=== PATIENT | female | born 1960 | race Caucasian/White ===

== ENCOUNTER 2017-07-05 13:27 | Inpatient (IN) | payer MEDICAID ==
--- NOTE | 2017-07-05 13:44 | C.PDOC ---
History Of Present Illness 56 y/o female with PMHx of HTN brought to ED by EMS with complaints of right sided numbness and weakness with associated mild headache while driving earlier today. Patient denies prior history of similar symptoms and denies chest pain, sob, nausea, vomiting or any other complaints at this time. Time Seen by Provider: 07/05/17 13:34 Chief Complaint (Nursing): Weakness/Neurological Deficit History Per: Patient, EMS History/Exam Limitations: no limitations Onset/Duration Of Symptoms: Hrs Current Symptoms Are (Timing): Still Present Past Medical History Reviewed: Historical Data, Nursing Documentation, Vital Signs Vital Signs: Last Vital Signs Temp 97.7 F 07/05/17 19:40 Pulse 80 07/05/17 19:40 Resp 20 07/05/17 19:40 BP 133/86 07/05/17 19:40 Pulse Ox 99 07/05/17 21:55 - Medical History PMH: HTN Surgical History: No Surg Hx Family History: States: No Known Family Hx - Social History Hx Alcohol Use: No Hx Substance Use: No - Immunization History Hx Tetanus Toxoid Vaccination: No Hx Influenza Vaccination: No Hx Pneumococcal Vaccination: No Review Of Systems Cardiovascular: Negative for: Chest Pain Respiratory: Negative for: Shortness of Breath Gastrointestinal: Negative for: Nausea, Vomiting Skin: Negative for: Rash Neurological: Positive for: Weakness, Numbness Physical Exam - Physical Exam Appears: Non-toxic, No Acute Distress Skin: Normal Color, Warm, Dry, No Rash Head: Atraumatic, Normacephalic Eye(s): bilateral: Normal Inspection, PERRL, EOMI Oral Mucosa: Moist Neck: Supple Cardiovascular: Rhythm Regular Respiratory: Normal Breath Sounds, No Rales, No Rhonchi, No Wheezing Gastrointestinal/Abdominal: Soft, No Tenderness, No Guarding, No Rebound Extremity: Normal ROM (4+/5 strength on right and 5/5 on left side ), Capillary Refill (<2 seconds), No Swelling Neurological/Psych: Oriented x3, Normal Speech, Normal Motor (4/5), No Normal Sensation (Decreased sensation to right face, right arm and right leg), Normal Reflexes (2+ at biceps and patella) ED Course And Treatment - Laboratory Results Result Diagrams: 07/05/17 13:56 07/05/17 13:56 ECG: Interpreted By Me, Viewed By Me ECG Rhythm: Sinus Rhythm Interpretation Of ECG: Poor R wave progression. Normal intervals, Normal access non specific ST wave changes Rate From EC (BPM) O2 Sat by Pulse Oximetry: 99 (RA) Pulse Ox Interpretation: Normal Critical Care Time - Critical Care Note Total Time (in mins): 60 Documented critical care: time excludes all time spent performing seperately billable procedures. NIHSS Stroke Scale - How Severe is the Stoke Level of Consciousness: 0=Alert LOC to Questions: 0=Both comments correct LOC to commands: 0=Obeys both correctly Best Gaze: 0=Normal Visual: 0=No visual loss Facial: 0=Normal Motor Arm - Left: 0=No drift Motor Arm - Right: 2=Falls before 10 sec Motor Leg - Left: 0=No drift Motor Leg - Right: 2=Falls before 5 sec Limb Ataxia: 0=Absent Sensory: 1=Mild to moderate loss Best Language: 0=No aphasia Dysarthia: 0=Normal articulation Extinction & Inattention (Neglect): 0=Normal, no object Score: 5 Severity Of Stroke: 5-15= Moderate Stroke Medical Decision Making Medical Decision Making: Spoke to Dr. Youssef instructed CT scan w/o contrast and CTA all normal Right sided weakness improved NIH scale now 1 Discussed with Neurologist No TPA at this time Discussed with family and patient agreed no TPA at this time [id number]: At this time patient only has decreased sensation to right side but able to hold both arms and low extremities against gravity Patient given Clavix and Aspirin, Fluids Diagnosis: CVA Disposition Discussed With : Allie Yanes Doctor Will See Patient In The: Hospital Counseled Patient/Family Regarding: Studies Performed, Diagnosis - Disposition Disposition: HOSPITALIZED Disposition Time: 15:00 Condition: FAIR - Clinical Impression Clinical Impression: CVA (cerebral vascular accident) - Scribe Statement The provider has reviewed the documentation as recorded by the Juanibpaolo Preciado All medical record entries made by the Scribe were at my direction and personally dictated by me. I have reviewed the chart and agree that the record accurately reflects my personal performance of the history, physical exam, medical decision making, and the department course for this patient. I have also personally directed, reviewed, and agree with the discharge instructions and disposition.
[2017-07-05] MEDS ORDERED: Iodixanol 320 mg/ml 150 ml Bottle IV ONE (13:56)
[2017-07-05 14:02] LABS: BASO # 0.1 K/uL (0.0-0.2); BASO % 0.7 % (0.0-2.0); EOS # 0.2 K/uL (0.0-0.7); EOS % 1.8 % (0.0-4.0); HEMATOCRIT 41.6 % (34.0-47.0); LYMPH # 3.5 K/uL (1.0-4.3); LYMPH % 40.4 % (20.0-40.0); MEAN CELL VOLUME 82.3 fL (81.0-99.0); MEAN CORPUSCULAR HEMOGLOBIN 27.9 pg (27.0-31.0); MEAN CORPUSCULAR HGB CONC 33.9 g/dL (33.0-37.0); MEAN PLATELET VOLUME 7.8 fL (7.2-11.7); MONO # 0.7 K/uL (0.0-0.8); MONO % 7.6 % (0.0-10.0); NRBC % 0.1 % (0.0-2.0); RED CELL DISTRIBUTION WIDTH 12.8 % (11.5-14.5); WHITE BLOOD COUNT 8.8 K/uL (4.8-10.8)
--- NOTE | 2017-07-05 14:08 | CT ---
PROCEDURE: CT HEAD WITHOUT CONTRAST. HISTORY: code stroke COMPARISON: None available. TECHNIQUE: Axial computed tomography images were obtained through the head/brain without intravenous contrast. Radiation dose: Total exam DLP = 1218.42 mGy-cm. This CT exam was performed using one or more of the following dose reduction techniques: Automated exposure control, adjustment of the mA and/or kV according to patient size, and/or use of iterative reconstruction technique. FINDINGS: HEMORRHAGE: No intracranial hemorrhage. BRAIN: Aguirre-white matter differentiation is preserved. There is no mass, mass effect or abnormal extra-axial fluid collection. There is no territorial infarction. VENTRICLES: The ventricles are normal in size, shape and configuration. CALVARIUM: The skull base and calvarium are normal. PARANASAL SINUSES: There is a large retention cyst/ polyp in the right maxillary sinus. There is scattered mucosal thickening in the ethmoid air cells and mild mucosal thickening in the right sphenoid chamber. The remaining included paranasal sinuses are clear. MASTOID AIR CELLS: Predominantly clear. OTHER FINDINGS: None. IMPRESSION: No acute intracranial abnormality. If there is a persistent focal neurologic deficit and an ongoing clinical concern for acute infarction, an MRI of the brain without intravenous contrast would be a more sensitive modality for evaluation of hyperacute/acute ischemic infarction. Important findings were discussed with Chris Carranza in the ER on 07/05/2017 at 20:05 p.m.
[2017-07-05 14:11] LABS: INR 1.1
[2017-07-05 14:14] LABS: ALKALINE PHOSPHATASE 66 U/L (38-126); ALT/SGPT 47 U/L (9-52); AST/SGOT 31 U/L (14-36); BILIRUBIN,TOTAL 0.5 mg/dL (0.2-1.3); BLOOD UREA NITROGEN 12 mg/dL (7-17); CALCIUM 8.6 mg/dl (8.6-10.4); CARBON DIOXIDE 29 mmol/L (22-30); CHLORIDE 101 mmol/L (98-107); CHOLESTEROL 207 mg/dL (0-199); GFR AFRICAN-AMERICAN > 60; GLUCOSE,RANDOM 95 mg/dL (65-105); POTASSIUM 3.9 mmol/L (3.6-5.2); SODIUM 138 mmol/L (132-148); TOTAL PROTEIN 8.6 g/dL (6.3-8.3)
--- NOTE | 2017-07-05 14:23 | CT ---
PROCEDURE: CTA HEAD AND NECK WITH CONTRAST HISTORY: Right side numbness and weakness COMPARISON: None available. TECHNIQUE: Initial noncontrast head CT was performed. Subsequently, CT angiogram of the head and neck were performed after the intravenous administration of 80 mL of Omnipaque 350. Contiguous 1.5mm thick images were obtained in the axial plane of the neck. 2-D coronal and sagittal MPR images were obtained. Imaging postprocessing was performed with 3-D images also obtained. A delayed contrast head CT was also obtained. This CT exam was performed using one or more of the following dose reduction techniques: Automated exposure control, adjustment of the mA and/or kV according to patient size, and/or use of iterative reconstruction technique. Contrast dose: 100 mL Visipaque 320 Radiation dose: Total exam DLP = 647.82 mGy-cm. FINDINGS: HEAD: Right: The intracranial internal carotid artery, and anterior and middle cerebral arteries are widely patent. The right A1 segment is hypoplastic, an anatomic variant. Left: The intracranial internal carotid artery, and anterior and middle cerebral arteries are widely patent. Posterior circulation: The visualized intracranial vertebral arteries, basilar artery and posterior cerebral arteries are widely patent. There is no endoluminal filling defect to suggest thrombus. There is no intracranial saccular aneurysm. There is no abnormal enhancement on the postcontrast CT. NECK: There is a two vessel aortic arch with common origin of the innominate and left common carotid arteries. There is retropharyngeal course of bilateral internal carotid arteries. There is no stenosis at the origins of the great vessels at the level of the aortic arch. Right Carotid: On the right, the common carotid, internal carotid and external carotid arteries are widely patent. There is no hemodynamically significant stenosis in the internal carotid arteries. Left Carotid: On the left, the common carotid, internal carotid and external carotid arteries are widely patent.There is no hemodynamically significant stenosis in the internal carotid arteries. The vertebral arteries are widely patent. The vertebral arteries are codominant. The visualized soft tissues of the neck are normal. The visualized brain and cervical spine are within normal limits. There is a retention cyst/polyp in the right maxillary sinus. The lung apices are clear. IMPRESSION: No evidence of intracranial thrombus, occlusion or definite significant stenosis. No evidence of hemodynamically significant stenosis in the internal carotid arteries. Widely patent codominant vertebral arteries.
[2017-07-05] MEDS ORDERED: Sodium Chloride 0.9% 1,000 ML IV ONE (14:31)
[2017-07-05] MEDS ORDERED: Sodium Chloride 0.9% 1,000 ML ONE (14:39)
[2017-07-05 14:48] VITALS: BMI 37.3
--- NOTE | 2017-07-05 15:11 | RAD ---
HISTORY: code stroke COMPARISON: No prior. FINDINGS: LUNGS: No active pulmonary disease. PLEURA: No significant pleural effusion identified, no pneumothorax apparent. CARDIOVASCULAR: Based on the right sided labeling of this exam the heart projects over the right gaston thorax. No prior studies are available to corroborate this. Heart size is borderline prominent. No pulmonary venous congestion OSSEOUS STRUCTURES: No significant abnormalities. VISUALIZED UPPER ABDOMEN: Normal. OTHER FINDINGS: None. IMPRESSION: No pulmonary venous congestion. Borderline cardiomegaly Dextro cardia versus inadvertent left right label switching. If patient has outside studies ease to be helpful in ensuring stability. Repeat exam if necessary another option
--- NOTE | 2017-07-05 16:29 | CP.PCM.CON ---
History of Present Illness - History of Present Illness History of Present Illness: Mrs. Bonilla is a 56-year-old woman with a past medical history of hypertension, who states she was driving and developed a sudden right frontal headache, followed by dizziness and as a result she pulled over to the side of the road. At that point, she lost consciousness and appeared to be "blue" according to her [id number]. She then woke up and was slightly confused/tired. She had right side weakness and loss of sensation on the right side. She was brought to the ED and was found to have no facial droop or dysarthria, but had right side weakness and subjective sensory deficits with an NIHSS of 5. She was sent to the CT scanner and also had a CTA of the head/neck. When she returned, her right side weakness was completely improved and she had some residual right facial sensory loss with right arm sensory loss. Her NIHSS had dropped down to a 1. She was not a good candidate for IV tPA due to rapid improvement. The CT scan of the head did not show any acute findings, and the CTA did not show any large vessel occlusion. She was loaded with Plavix 300 mg and Aspirin 81 mg. She continued to complain of a mild headache. Review of Systems - Review of Systems All systems: reviewed and no additional remarkable complaints except Review of Systems: the neurological issues mentioned in the HPI. Past Patient History - Past Social History Smoking Status: Never Smoked - CARDIAC Hx Hypertension: Yes - PSYCHIATRIC Hx Substance Use: No - SURGICAL HISTORY Hx Surgeries: No Meds Allergies/Adverse Reactions: Allergies Allergy/AdvReac Type Severity Reaction Status Date / Time No Known Allergies Allergy Unverified 12/08/12 10:00 Physical Exam - Constitutional Appears: Well - Head Exam Head Exam: ATRAUMATIC, NORMAL INSPECTION, NORMOCEPHALIC - Eye Exam Eye Exam: EOMI, Normal appearance, PERRL - ENT Exam ENT Exam: Mucous Membranes Moist, Normal Exam - Neck Exam Neck exam: Positive for: Normal Inspection - Respiratory Exam Respiratory Exam: Clear to Auscultation Bilateral, NORMAL BREATHING PATTERN - Cardiovascular Exam Cardiovascular Exam: +S1, +S2 - GI/Abdominal Exam GI & Abdominal Exam: Normal Bowel Sounds, Soft. absent: Tenderness - Rectal Exam Rectal Exam: Deferred - Extremities Exam Extremities exam: Positive for: normal inspection - Back Exam Back exam: NORMAL INSPECTION - Neurological Exam Neurological exam: Alert, CN II-XII Intact, Normal Gait, Oriented x3, Reflexes Normal Additional comments: NIHSS = 1 - Expanded Neurological Exam Expanded Patient oriented to: person, place, time Cranial nerves: EOM's Intact: Normal, Facial Sensation: Abnormal Right Ataxia: No Cerebellar Function: Finger to Nose: Normal, Heel to Palumbo: Normal Upper motor neuron: Babinski Sign: Normal Sensory exam: Lower Extremity Light Touch: Abnormal Right, Lower Extremity Pin Prick: Normal, Upper Extremity Light Touch: Abnormal Right, Upper Extremity Pin Prick: Normal Neuro motor strength exam: Left Upper Extremity: 5, Right Upper Extremity: 5, Left Lower Extremity: 5, Right Lower Extremity: 5 DTR: Bicep Left: 2+, Bicep Right: 2+, Patellar Left: 2+, Patellar Right: 2+ - Psychiatric Exam Psychiatric exam: Normal Affect, Normal Mood - Skin Skin Exam: Dry, Intact, Normal Color, Warm Results - Vital Signs Recent Vital Signs: Last Vital Signs Temp 98.7 F 07/05/17 13:32 Pulse 83 07/05/17 15:01 Resp 18 07/05/17 15:01 BP 134/85 07/05/17 15:01 Pulse Ox 99 07/05/17 15:07 - Labs Result Diagrams: 07/05/17 13:56 07/05/17 13:56 Labs: Laboratory Results - last 24 hr 07/05/17 07/05/17 07/05/17 13:33 13:56 13:56 WBC 8.8 RBC 5.05 Hgb 14.1 Hct 41.6 MCV 82.3 MCH 27.9 MCHC 33.9 RDW 12.8 Plt Count 364 MPV 7.8 Neut % (Auto) 49.5 L Lymph % (Auto) 40.4 H [place] % (Auto) 7.6 Eos % (Auto) 1.8 Baso % (Auto) 0.7 Neut # 4.3 Lymph # 3.5 [place] # 0.7 Eos # 0.2 Baso # 0.1 PT 12.0 INR 1.1 APTT 31 Sodium Potassium Chloride Carbon Dioxide Anion Gap BUN Creatinine Est GFR ( Amer) Est GFR (Non-Af Amer) POC Glucose (mg/dL) 93 Random Glucose Hemoglobin A1c Calcium Total Bilirubin AST ALT Alkaline Phosphatase Total Creatine Kinase CK-MB (Mass) Troponin I Total Protein Albumin Globulin Albumin/Globulin Ratio Triglycerides Cholesterol LDL Cholesterol Direct HDL Cholesterol Blood Type Antibody Screen 07/05/17 07/05/17 07/05/17 13:56 13:56 13:56 WBC RBC Hgb Hct MCV MCH MCHC RDW Plt Count MPV Neut % (Auto) Lymph % (Auto) [place] % (Auto) Eos % (Auto) Baso % (Auto) Neut # Lymph # [place] # Eos # Baso # PT INR APTT Sodium 138 Potassium 3.9 Chloride 101 Carbon Dioxide 29 Anion Gap 12 BUN 12 Creatinine 0.7 Est GFR ( Amer) > 60 Est GFR (Non-Af Amer) > 60 POC Glucose (mg/dL) Random Glucose 95 Hemoglobin A1c 5.9 Calcium 8.6 Total Bilirubin 0.5 AST 31 ALT 47 Alkaline Phosphatase 66 Total Creatine Kinase 225 H CK-MB (Mass) 0.95 Troponin I < 0.0120 Total Protein 8.6 H Albumin 4.2 Globulin 4.4 H Albumin/Globulin Ratio 1.0 Triglycerides 187 H Cholesterol 207 H LDL Cholesterol Direct 136 H HDL Cholesterol 45 Blood Type A NEGATIVE Antibody Screen Negative Assessment & Plan (1) Acute ischemic stroke Assessment and Plan: Based on the history of headache, loss of consciousness and subsequent right side weakness, the differential should also include complicated migraine and seizure with Jose's paralysis. I recommend the followin. Telemetry 2. MRI of the brain without contrast and MRA of the head/neck with and without contrast 3. Echocardiogram with bubble study 4. Plavix 75 mg daily and Aspirin 81 mg daily 5. Lipid panel, HbA1c, B12, folate, TSH, homocysteine levels 6. Give Magnesium Sulfate 2 grams IV once for headache as well as Decadron 10 mg IV once 7. PT/OT eval and treat 8. Lipitor 40 mg 9. DVT Px 10. Case management consult Thank you. Status: Acute Priority: High
[2017-07-05] MEDS ORDERED: Pneumococcal 23-Valent Vaccine IM ONE (23:14)
[2017-07-06] MEDS: Enoxaparin 40 mg Syringe SC SCH (09:26)
[2017-07-06] MEDS ORDERED: Ergocalciferol 50,000 Intl Units Cap PO SCH (12:00)
--- NOTE | 2017-07-06 12:07 | MRI ---
PROCEDURE: MRI BRAIN WITHOUT CONTRAST HISTORY: CVA COMPARISON: None. TECHNIQUE: Multiplanar, multisequence MR images of the brain were obtained without intravenous contrast enhancement. FINDINGS: HEMORRHAGE: None DWI: No evidence of an acute or early subacute infarction. BRAIN PARENCHYMA: Occasional subcortical and centrum semiovale sub cm long TR hyperintensities are identified in a pattern that most likely reflects chronic microangiopathy. There is no mass effect or intracranial hemorrhage appreciable. Good corticomedullary differentiation is appreciated above and below the tentorium with the brainstem grossly nonfocal. There is no suspicious extra-axial fluid collection identified. However, the cerebellar tonsils extend below the foramen magnum approximate 4.3 mm which is compatible low-lying cerebellar tonsils. No kinking of the cervicomedullary junction or the upper medulla. VENTRICLES: Unremarkable. No hydrocephalus. CRANIUM: Unremarkable. ORBITS: Grossly unremarkable. PARANASAL SINUSES/MASTOIDS: Mild sinusitis changes are identified in the bilateral ethmoid air cells and minimally in the bilateral sphenoid sinuses as well as prominent at the right maxillary sinus. VASCULAR SYSTEM: Skull base flow voids intact. OTHER FINDINGS: None. IMPRESSION: Low-lying cerebellar tonsils are identified. 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 No acute separate brain infarction or definite intracranial hemorrhage identified this time. Incidental limited sinus disease as discussed above.
--- NOTE | 2017-07-06 13:27 | CP.PCM.PN ---
Subjective - Date & Time of Evaluation Date of Evaluation: 07/06/17 Time of Evaluation: 13:24 - Subjective Subjective: Ms. Bonilla was seen and examined at the beside. She is alert, oriented in all spheres. She states of decrease sensation and weakness of her right side especially her face. She denies any blurry vision, headache, nausea, vomiting, or numbness. She is sitting in a chair and able to tolerate PO intake.There was no untoward events overnight. Objective - Vital Signs/Intake and Output Vital Signs (last 24 hours): Temp Pulse Resp BP Pulse Ox 98.4 F 80 20 132/85 98 07/06/17 12:22 07/06/17 08:25 07/06/17 08:25 07/06/17 08:25 07/06/17 08:25 Intake and Output: 07/06/17 07/06/17 06:59 18:59 Output Total 200 Balance -200 - Medications Medications: Current Medications Acetaminophen (Tylenol 325mg Tab) 650 mg PO Q8 PRN PRN Reason: Headache Last Admin: 07/06/17 12:22 Dose: 650 mg Aspirin (Aspirin Chewable) 81 mg PO DAILY [facility] Last Admin: 07/06/17 09:26 Dose: 81 mg Clopidogrel Bisulfate (Plavix) 75 mg PO DAILY [facility] Last Admin: 07/06/17 09:26 Dose: 75 mg Enoxaparin Sodium (Lovenox) 40 mg SC DAILY [facility] Last Admin: 07/06/17 09:26 Dose: 40 mg Ergocalciferol (Drisdol 50,000 Intl Units Cap) 1 cap PO Q7D [facility] Last Admin: 07/06/17 12:21 Dose: 1 cap Losartan Potassium (Cozaar) 100 mg PO DAILY [facility] Last Admin: 07/06/17 09:27 Dose: 100 mg Pneumococcal Polyvalent Vaccine (Pneumovax 23 Vaccine) 0.5 ml IM .ONCE ONE Stop: 07/08/17 10:01 Rosuvastatin Calcium (Crestor) 20 mg PO HS [facility] - Labs Labs: 07/05/17 13:56 07/05/17 13:56 PT 12.0 SECONDS (9.7-12.2) 07/05/17 13:56 INR 1.1 07/05/17 13:56 APTT 31 SECONDS (21-34) 07/05/17 13:56 - Constitutional Appears: No Acute Distress - Head Exam Head Exam: ATRAUMATIC - Neurological Exam Neurological Exam: Alert, Awake, Oriented x3 Neuro motor strength exam: Left Upper Extremity: 5, Right Upper Extremity: 4, Left Lower Extremity: 5, Right Lower Extremity: 4 Additional comments: She is able to answer questions appropriately and follows commands. Sensation is asymmetrical. Assessment and Plan (1) Acute ischemic stroke Assessment & Plan: Case discussed with Dr. Youssef, Recommends MRA of the head and neck without contrast. Continue all current medical physical, occupational, and speech therapies. Pending echocardiogram result. Status: Acute
--- NOTE | 2017-07-06 13:38 | HP ---
CHIEF COMPLAINT: Weakness and neurological deficit. HISTORY OF PRESENT ILLNESS: Ms. Irene Yu is a 56-year-old female with past medical history of hypertension, brought to emergency department by EMS with complaining of right-sided numbness and weakness with headache while driving earlier today. The patient denies prior history of similar symptoms and denies any chest pain, shortness of breath, nausea, vomiting, or any other complaints at this time. The patient was seen in the emergency room. The patient's son and [id number] were standing on the bedside also, all questions answered, seen by the neurologist. PAST MEDICAL HISTORY: Hypertension and obesity. PAST SURGICAL HISTORY: Not significant. FAMILY HISTORY: Father and mother, noncontributory. HABITS: No smoking. No drugs. No ethanol. REVIEW OF SYSTEMS: The patient is seen and examined on the bedside, looking comfortable. No nausea, vomiting, or diarrhea. No hematuria or hematochezia. The patient was seen in the emergency room. Weakness is a little better. No headache. No dizziness. PHYSICAL EXAMINATION: VITAL SIGNS: Temperature 98.7, pulse 83, respiratory rate 18, blood pressure 135/84. HEENT: Head, normocephalic and atraumatic. Eyes, PERRLA. Extraocular muscles are intact. Conjunctivae are clear. Nose is patent. Mucous membranes are moist. NECK: Supple. No carotid bruits. No JVD or thyromegaly. CHEST: Bilaterally symmetrical. HEART: S1 and S2 positive. LUNGS: Clear to auscultation. ABDOMEN: Soft. Bowel sounds positive. No organomegaly. EXTREMITIES: No edema, no cyanosis. NEUROLOGIC: The patient is awake, alert, and oriented x3. Normal speech. LABORATORY DATA: White blood cell is 8.8, hemoglobin 14.1, hematocrit 41.6, platelets 364,000. Sodium 138, potassium 3.9, BUN 12, creatinine 0.7, and glucose 95. ASSESSMENT AND PLAN: Ms. Irene Yu is a 56-year-old lady with history of hypertension, came into [facility] with neurological deficit. CAT scan of the head was done without contrast. ER spoke with Neurology, Dr. Youssef. The patient's right-sided weakness improved, NIH scale was 1. He had decided not tPA at this time. We discussed with the family and the patient, they agreed no tPA at this time. The patient is not able to hold both arms and lower extremities against gravity. The patient was given Plavix and aspirin, admitted for cerebrovascular accident. I will order bilateral carotid Doppler of the neck, losartan for hypertension and will give some physical therapy and we will follow up. Allie Yanes MD
--- NOTE | 2017-07-06 14:48 | VASCLAB ---
PROCEDURE: HISTORY: TIA COMPARISON: None available. TECHNIQUE: Grayscale and duplex Doppler evaluation of the cervical carotid and vertebral arteries were performed. The common carotid, carotid bifurcations and cervical Internal Carotid Artery (ICA) and proximal External Carotid Artery (ECA) were evaluated. The vertebral arteries were evaluated for gross patency and flow direction. Report prepared by MANA Oates FINDINGS: RIGHT CAROTID ARTERIES: 1. Common Carotid Artery: No significant focal plaque formation of the right common carotid artery. Maximum Peak Systolic velocity: 121 cm/sec: End-diastolic velocity 35 cm/sec. 2. Carotid Bifurcation: plaque formation. Maximum Peak Systolic velocity: 66 cm/sec: End-diastolic velocity 19 cm/sec. 3. Internal Carotid Artery: Plaque description: 3.1. Proximal Segment: Peak systolic velocity 77 cm/sec: End-diastolic velocity 27 cm/sec - % stenosis 0-15% 3.2. Middle Segment: Peak systolic velocity 73 cm/sec: End-diastolic velocity 29 cm/sec - % stenosis 0-15% 3.3. Distal Segment: Peak systolic velocity 73 cm/sec: End-diastolic velocity 27 cm/sec - % stenosis 0-15% 4. External Carotid Artery: No significant focal plaque formation. Peak systolic velocity 95 cm/sec 5. ICA/CCA Ratio: 0.9 LEFT CAROTID ARTERIES: 1. Common Carotid Artery: No significant focal plaque formation of the left common carotid artery. Maximum Peak Systolic velocity: 83 cm/sec: End-diastolic velocity 23 cm/sec. 2. Carotid Bifurcation: plaque formation. Maximum Peak Systolic velocity: 65 cm/sec: End-diastolic velocity 21 cm/sec. 3. Internal Carotid Artery: Plaque description: 3.1. Proximal Segment: Peak systolic velocity 62 cm/sec: End-diastolic velocity 23 cm/sec - % stenosis 0-15% 3.2. Middle Segment: Peak systolic velocity 91 cm/sec: End-diastolic velocity 41 cm/sec - % stenosis 0-15% 3.3. Distal Segment: Peak systolic velocity 66 cm/sec: End-diastolic velocity 22 cm/sec - % stenosis 0-15% 4. External Carotid Artery: No significant focal plaque formation. Peak systolic velocity 143 cm/sec 5. ICA/CCA Ratio: 1.3 VERTEBRAL ARTERIES: 1. Right Vertebral Artery: The right vertebral artery flow direction is antegrade. 2. Left Vertebral Artery: The left vertebral artery flow direction is antegrade. OTHER FINDINGS: 1. Right Brachial Blood pressure: 140 mmHg. 2. Left Brachial Blood pressure: 140 mmHg. IMPRESSION: RIGHT: Duplex scan does not suggest hemodynamically significant stenosis of the right extracranial carotid arteries. LEFT: Duplex scan does not suggest hemodynamically significant stenosis of the left extracranial carotid arteries.
--- NOTE | 2017-07-06 15:03 | MRI ---
PROCEDURE: MR Angiography of the neck without contrast HISTORY: CVA COMPARISON: None available. TECHNIQUE: 3D Dogy-dl-vloidr angiography of the neck was performed. Rotating maximum intensity projection images of the cervical carotid and vertebral arteries were generated. The origins of the common carotid arteries were not visualized, which is a limitation inherent to the non-contrast time of flight technique. FINDINGS: RIGHT CAROTID ARTERIES: Common Carotid Artery: Normal. Carotid Bifurcation: Normal. Internal Carotid Artery:No definite significant stenosis appreciated External Carotid Artery (proximal branches): Normal. LEFT CAROTID ARTERIES: Common Carotid Artery: Normal. Carotid Bifurcation: Normal. Internal Carotid Artery:No definite significant stenosis appreciated External Carotid Artery (proximal branches): Normal. VERTEBRAL ARTERIES: Right Vertebral Artery: No definite significant stenosis appreciated Left Vertebral Artery: No definite significant stenosis appreciated OTHER FINDINGS: None. IMPRESSION: No definite significant stenosis appreciated the visualized bilateral common and internal carotid arteries as discussed above. Bilateral vertebral arteries appear widely patent as well. Motion artifacts limit this examination somewhat.
--- NOTE | 2017-07-06 15:05 | MRI ---
PROCEDURE: Magnetic Resonance Angiography Brain HISTORY: CVA COMPARISON: None available. TECHNIQUE: 3D time of flight MR angiography of the intracranial arteries was performed. Rotating maximum intensity projection images were generated. FINDINGS: INTERNAL CAROTID ARTERIES: Unremarkable. The skull base, petrous, cavernous and supraclinoid segments are bilaterally widely patient. ANTERIOR CEREBRAL ARTERIES: Unremarkable. A1 and A2 segments are widely patent. Smaller distal branches unremarkable, as visualized. MIDDLE CEREBRAL ARTERIES: Unremarkable. M1 and M2 segments are widely patent. Perisylvian branches grossly symmetric. POSTERIOR CIRCULATION: Basilar Artery: Unremarkable. Distal Vertebral Arteries: Unremarkable. Posterior Cerebral Arteries: Unremarkable. Posterior Inferior Cerebellar Arteries: Unremarkable. ANEURYSM/ VASCULAR MALFORMATIONS: None. OTHER FINDINGS: None. IMPRESSION: Unremarkable MR angiography of the brain.
--- NOTE | 2017-07-07 06:23 | PN ---
DATE: SUBJECTIVE: The patient is seen and examined at the bedside, looking comfortable. Family, two [id number], and a son in on the bedside. No blurring of vision. No nausea, vomiting, or diarrhea. Tolerating food. Went for different tests, reviewed by me, seen by the neurologist. PHYSICAL EXAMINATION: VITAL SIGNS: Temperature 98.4, pule 80, respiratory rate 20, blood pressure 132/85, pulse oximetry of 98. HEENT: Head normocephalic, atraumatic. Eyes PERRLA. Extraocular muscles intact. Conjunctivae clear. Nose patent. Mucous membrane moist. NECK: Supple. No carotid bruit, JVD, or thyromegaly. CHEST: Bilaterally symmetrical. HEART: S1 and S2 positive. LUNGS: Clear to auscultation. ABDOMEN: Soft. Bowel sounds positive. No organomegaly. EXTREMITIES: No edema. No cyanosis. NEUROLOGICAL: The patient is awake, alert. Moving all 4 extremities. No focal deficit. MEDICATIONS: Tylenol, aspirin, Plavix, Lovenox, vitamin D, Cozaar, Pneumovax, Crestor. LABORATORY DATA: White blood cells 8.8, hemoglobin 14.1, hematocrit 41.6, platelets 364. Sodium 130, potassium 3.9, BUN 12, creatinine 0.7, glucose 95. ASSESSMENT AND PLAN: Ms. Irene Yu is a 56-year-old lady with history of asthma, came with acute ischemic stroke, seen by Dr. Youssef, neurologist, recommended MRA of the head and neck without contrast. Continue current medical treatment and physical therapy, occupational therapy, and speech therapy. Need echocardiography. Reviewed neck MRA. No definite significant stenosis appreciated in bilateral common and internal carotids, bilateral vertebral arteries appear widely patent, motion artifact limited this examination somewhat. Reviewed head MRA. Unremarkable MR angiography of the brain. Did brain MRI, low-lying cerebellar tonsils are identified as well as early chronic microangiopathy is identified. No acute separate brain infarctions or definite intracranial hemorrhage identified at this time. Bilateral carotid Doppler of the neck is reviewed. Right carotid artery, common carotid artery, no significant focal plaque formation of the right common carotid artery, maximum peak systolic velocity 121, end-diastolic velocity 35, carotid bifurcation plaque formation, maximum speed/velocity 66. Internal carotid artery plaque description, one proximal segment peak systolic velocity 77. History of hypertension, obesity, right side weakness improving, TPA was not given in the ER because as per Neurology, the patient was not a candidate. Needs good physical therapy. We will follow up. Allie Yanes MD MTDAbby
[2017-07-07] MEDS: Enoxaparin 40 mg Syringe SC SCH (09:46)
[2017-07-07] MEDS ORDERED: Bisacodyl 5mg EC Tab PO ONE (18:58)
[2017-07-08 02:09] VITALS: RESP 20
--- NOTE | 2017-07-08 03:09 | PN ---
DATE: SUBJECTIVE: Patient is a 56-year-old female. Patient is seen and examined at the bedside, looking comfortable. No change happened overnight. Weakness is getting better. Went for echocardiography, results are pending. Seen by the neurologist. PHYSICAL EXAMINATION: VITAL SIGNS: Temperature 97.9, pulse 95, respiratory rate 18, blood pressure 112/75. HEENT: Head, normocephalic and atraumatic. Eyes, PERRLA. Extraocular muscles are intact. Conjunctivae are clear. Nose is patent. Mucous membranes are moist. NECK: Supple. No carotid bruits. No JVD or thyromegaly. CHEST: Bilaterally symmetrical. HEART: S1 and S2 positive. LUNGS: Clear to auscultation. ABDOMEN: Soft. Bowel sounds present. No organomegaly. EXTREMITIES: No edema. No cyanosis. NEUROLOGICAL: Patient is awake, alert. Moving all four extremities. No focal deficits. MEDICATIONS: Aspirin, Cozaar, Crestor, vitamin D, Lovenox, Plavix, Tylenol. LABORATORY DATA: We do not have recent labs today, but I reviewed old labs. ASSESSMENT AND PLAN: Mrs. Irene Yu is a 56-year-old lady with hypercholesterolemia, hypertriglyceridemia. Went for echocardiography today, results are pending. Neurologist, Dr. Nolberto Youssef, is on the case. History of asthma, has acute ischemic stroke. Patient will have good benefit from physical therapy. We will continue present treatment. Gastrointestinal and deep venous thrombosis prophylaxis. Repeat labs. Allie Yanes MD
[2017-07-08 08:28] VITALS: O2SAT 97
[2017-07-08] MEDS ORDERED: Pneumococcal 23-Valent Vaccine IM ONE (10:00)
[2017-07-08] MEDS ORDERED: Influenza Vaccine 60 mcg/0.5 mL SYR (4YR UP) IM ONE (10:00)
[2017-07-08] MEDS: Enoxaparin 40 mg Syringe SC SCH (10:44)
[2017-07-08] MEDS ORDERED: Apap-Butalbital-Caffeine 325-50-40mg Tab PO PRN (11:50)
--- NOTE | 2017-07-08 12:14 | CARD ---
APPROVED REPORT EKG Measurement Heart [id number] MI 148P [id number] <Conclusion> Suspect arm lead reversal, interpretation assumes no reversal Normal sinus rhythm Inferior infarct, age undetermined Anterolateral infarct, age undetermined Abnormal ECG
--- NOTE | 2017-07-08 13:21 | CP.PCM.PN ---
Subjective - Date & Time of Evaluation Date of Evaluation: 07/08/17 Time of Evaluation: 13:18 - Subjective Subjective: Ms. Bonilla was seen and examined at the bedside. She is alert, oriented in all spheres. She states of experiencing headache in her right frontal area radiating to the right side of her face. She further describe as pressure-like. 02/07. She denies any dizziness, lightheadedness, numbness, nausea, or vomiting. She was able to tolerate all po intake. There was no untoward events overnight. Objective - Vital Signs/Intake and Output Vital Signs (last 24 hours): Temp Pulse Resp BP Pulse Ox 98.0 F 85 20 139/82 97 07/08/17 08:27 07/08/17 12:00 07/08/17 08:27 07/08/17 10:40 07/08/17 08:27 - Medications Medications: Current Medications Acetaminophen (Tylenol 325mg Tab) 650 mg PO Q8 PRN PRN Reason: Fever Aspirin (Aspirin Chewable) 81 mg PO DAILY [facility] Last Admin: 07/08/17 10:43 Dose: 81 mg Clopidogrel Bisulfate (Plavix) 75 mg PO DAILY [facility] Last Admin: 07/08/17 10:43 Dose: 75 mg Enoxaparin Sodium (Lovenox) 40 mg SC DAILY [facility] Last Admin: 07/08/17 10:44 Dose: 40 mg Ergocalciferol (Drisdol 50,000 Intl Units Cap) 1 cap PO Q7D [facility] Last Admin: 07/06/17 12:21 Dose: 1 cap Magnesium Sulfate/Dextrose (Magnesium Sulfate 1 Gm/100 Ml D5w) 1 gm in 100 mls @ 300 mls/hr IVPB Q30M [facility] Stop: 07/08/17 13:19 Valproate Sodium 500 mg/ (Sodium Chloride) 105 mls @ 105 mls/hr IVPB ONCE ONE PRN Reason: Per Protocol Stop: 07/08/17 14:29 Losartan Potassium (Cozaar) 100 mg PO DAILY [facility] Last Admin: 07/08/17 10:43 Dose: 100 mg Rosuvastatin Calcium (Crestor) 20 mg PO HS [facility] Last Admin: 07/07/17 21:23 Dose: 20 mg - Labs Labs: 07/05/17 13:56 07/05/17 13:56 PT 12.0 SECONDS (9.7-12.2) 07/05/17 13:56 INR 1.1 07/05/17 13:56 APTT 31 SECONDS (21-34) 07/05/17 13:56 - Constitutional Appears: No Acute Distress - Head Exam Head Exam: ATRAUMATIC - Neurological Exam Neurological Exam: Alert, Awake, CN II-XII Intact, Oriented x3 Neuro motor strength exam: Left Upper Extremity: 5, Right Upper Extremity: 4, Left Lower Extremity: 5, Right Lower Extremity: 4 Additional comments: Neurological unchanged from previous examination. Assessment and Plan (1) Acute ischemic stroke Assessment & Plan: Case discussed with Dr. Youssef, continue all current medical, physical, and occupational therapies. Status: Acute (2) Headache Assessment & Plan: Case discussed with Dr. Youssef, recommends repeat CT of the head without contrast. Magnesium 2 gm IVPB for 1 dose, Decadron 10 mg IVP for 1 dose, Depakote 500 mg IVPB for 1 dose. Status: Acute
[2017-07-08] MEDS ORDERED: Valproate 500 MG in Sodium Chloride 0.9% 100 ML IVPB ONE (13:30)
[2017-07-08] MEDS: Magnesium Sulfate 1 gm in D5W 1 GM/100 ML BAG IVPB SCH ×5 (13:44→15:49)
--- NOTE | 2017-07-08 14:15 | CT ---
PROCEDURE: CT HEAD WITHOUT CONTRAST. HISTORY: headache, follow up stroke COMPARISON: MRI brain without contrast from 07/06/2017. TECHNIQUE: Axial computed tomography images were obtained through the head/brain without intravenous contrast. Radiation dose: Total exam DLP = 1068.87 mGy-cm. This CT exam was performed using one or more of the following dose reduction techniques: Automated exposure control, adjustment of the mA and/or kV according to patient size, and/or use of iterative reconstruction technique. FINDINGS: HEMORRHAGE: No intracranial hemorrhage. BRAIN: Aguirre-white matter differentiation is preserved. There is no mass, mass effect or abnormal extra-axial fluid collection normal. There is inferior herniation of the cerebellar tonsils through the foramina magnum. VENTRICLES: The ventricles are normal in size, shape and configuration. There is effacement of the basilar cisterns. CALVARIUM: The skull base and calvarium are. PARANASAL SINUSES: Mild mucosal thickening in the ethmoid air cells and small retention cyst/ polyp in the right sphenoid chamber. MASTOID AIR CELLS: Predominantly clear. OTHER FINDINGS: None. IMPRESSION: No acute intracranial abnormality. Inferior herniation of cerebellar tonsils through the foramina magnum and effacement of basilar cisterns. Given patient's history of headache, benign intracranial hypertension is a consideration. Please correlate with CSF opening pressure. Important findings were discussed with Dr. Wade Youssef on a 07/08/2017 at 2:05 p.m.
--- NOTE | 2017-07-08 17:20 | CP.PCM.PN ---
Subjective - Date & Time of Evaluation Date of Evaluation: 07/08/17 Time of Evaluation: 17:20 - Subjective Subjective: PATIENT WAS ADMITTED FOR CVA; AAOX3 ABLE TO MOVE ALL EXTREMITIES NO SIGN OF WEAKNESS NOTED; PATIENT ONLY COMPLAINING OF RIGHT EYE PRESSURE NO VISION CHANGE NOTED AND PATIENT DENIES HEADACHE OR BLURRED VISION Objective - Vital Signs/Intake and Output Vital Signs (last 24 hours): Temp Pulse Resp BP Pulse Ox 98.0 F 85 20 139/82 97 07/08/17 08:27 07/08/17 12:00 07/08/17 08:27 07/08/17 10:40 07/08/17 08:27 Intake and Output: 07/08/17 07/08/17 06:59 18:59 Intake Total 700 Balance 700 - Medications Medications: Current Medications Acetaminophen (Tylenol 325mg Tab) 650 mg PO Q8 PRN PRN Reason: Fever Acetazolamide (Diamox Sequels 500 Mg Sr Cap) 500 mg PO BID [facility] Aspirin (Aspirin Chewable) 81 mg PO DAILY [facility] Last Admin: 07/08/17 10:43 Dose: 81 mg Clopidogrel Bisulfate (Plavix) 75 mg PO DAILY [facility] Last Admin: 07/08/17 10:43 Dose: 75 mg Enoxaparin Sodium (Lovenox) 40 mg SC DAILY [facility] Last Admin: 07/08/17 10:44 Dose: 40 mg Ergocalciferol (Drisdol 50,000 Intl Units Cap) 1 cap PO Q7D [facility] Last Admin: 07/06/17 12:21 Dose: 1 cap Losartan Potassium (Cozaar) 100 mg PO DAILY [facility] Last Admin: 07/08/17 10:43 Dose: 100 mg Rosuvastatin Calcium (Crestor) 20 mg PO HS [facility] Last Admin: 07/07/17 21:23 Dose: 20 mg - Labs Labs: 07/05/17 13:56 07/05/17 13:56 PT 12.0 SECONDS (9.7-12.2) 07/05/17 13:56 INR 1.1 07/05/17 13:56 APTT 31 SECONDS (21-34) 07/05/17 13:56 Assessment and Plan - Assessment and Plan (Free Text) Assessment: A/P PATIENT IS SEEN AND EXAMINED AT THE BEDSIDE; NEURO CLEAR THE PATIENT FOR DISCHARGE BUT HAD SOME CONCERN WITH HEAD CT AND ASK THE PATIENT TO F/U OUT PATIENT FOR A LUMBAR PUNCTURE IN HIS OFFICE SINCE PATIENT WANT TO GO HOME DISCUSS WITH THE PMD AND AGREE AND CLEAR THE PATIENT FOR DC\ DISCUSS WITH DR SOMMERS FOR AN ECHO REPORT EF IS NORMAL AND CLEAR PATIENT FOR DC DISCHARGE HOME WITH HOME PHYSICAL THERAPY FOLLOW UP WITH DR SAAB IN A WEEK AT HER OFFICE ----CALL HER OFFICE FOR APPOINTMENT FOLLOW UP WITH DR RANGEL IN THE WEEK OF THE AT HIS OFFICE ---CALL FOR APPOINTMENT ADDRESS YOUR lUMPAR PUNCTURE AND ALSO ASK THE DOCTOR SHOULD YOU CONTINUE DIAMOX AT YOUR APPOINTMENT CONTINUE ALL YOUR HOME MEDS PER MED RECS NEW RX GIVEN: DIAMOX AND ASPIRIN PER NEUROLOGIST CRESTOR 10 MG PO AT HS CALL DR SAAB OR JUAN CARLOS OR GO TO THE ER IF SYMPTOMS RETURN OR WORSENING DISCUSS WITH PATIENT WHO AGREE WITH THE PLAN AND VERBALIZED UNDERSTANDING
[2017-07-08] MEDS ORDERED: acetaZOLAMIDE 500 mg SR Cap PO SCH (18:00)
[2017-07-08 18:32] VITALS: BP 138/87; TEMP 97.7
[2017-07-09 00:44] VITALS: PULSE 84
--- NOTE | 2017-07-10 21:11 | CARD ---
APPROVED REPORT EXAM: LIMITED Two-dimensional and M-mode echocardiogram with Doppler and color Doppler. Other Information Quality : LimitedRhythm : INDICATION CVA/TIA 2D DIMENSIONS IVSd1.1 (0.7-1.1cm)LVDd3.8 (3.9-5.9cm) PWd1.1 (0.7-1.1cm)LVDs2.6 (2.5-4.0cm) FS (%) 30.5 %LVEF (%)58.7 (>50%) M-Mode DIMENSIONS Left Atrium (MM)3.63 (2.5-4.0cm)Aortic Root3.18 (2.2-3.7cm) Aortic Cusp Exc.2.22 (1.5-2.0cm) Mitral Valve MV E Ujhxjgzs68.7cm/sMV A Kcseixgo54.5cm/sE/A ratio1.7 TDI E/Lateral E'0.0E/Medial E'0.0 Tricuspid Valve TR Peak Jrhzdeqb212uy/sTR Peak Gr.[id number] <Conclusion> Suboptimal study DEXTROCARDIA Left ventricle: thickness: normal; size: normal; overall ejection fraction: 55%: diastolic filling pressures: elevated Mitral valve:GROSSLY NORMAL left atrium: normal Aortic valve: grossly normal Right sided Structures: suboptimally visualized Intra-cardiac hemodynamics: Indeterminate No pericardial effusion
--- NOTE | 2017-07-11 10:43 | VASCLAB ---
PROCEDURE: Lower Extremity Venous Duplex Exam. HISTORY: rule out DVT, right thigh pain PRIORS: None. TECHNIQUE: Bilateral common femoral, femoral, popliteal and posterior tibial, peroneal and great saphenous veins were evaluated. Flow was assessed with color Doppler, compressibility, assessment of phasic flow and augmentation response. Report prepared by Flash Otero, BEVERLY, RVT FINDINGS: RIGHT: 1. Common Femoral Vein: 1.1. Compressibility - Fully compressible: Thrombus - None : Flow - Phasic: Augmentation -Normal: Reflux - None. 2. Femoral Vein: 2.1. Compressibility - Fully compressible: Thrombus - None : Flow - Phasic: Augmentation -Normal: Reflux - None. 3. Popliteal Vein: 3.1. Compressibility - Fully compressible: Thrombus - None : Flow - Phasic: Augmentation -Normal: Reflux - None. 4. Posterior Tibial Vein: 4.1. Compressibility - Fully compressible: Thrombus - None: Flow - Phasic: Augmentation -Normal: Reflux - None. 5. Peroneal Vein: 5.1. Compressibility - Fully compressible: Thrombus - None: Flow - Phasic: Augmentation -Normal: Reflux - None. 6. Great Saphenous Vein: 6.1. Compressibility - Fully compressible: Thrombus - None: Flow - Phasic: Augmentation - Normal: Reflux - None. LEFT: 1. Common Femoral Vein: 1.1. Compressibility - Fully compressible: Thrombus - None: Flow - Phasic: Augmentation -Normal: Reflux - None. 2. Femoral Vein: 2.1. Compressibility - Fully compressible: Thrombus - None: Flow - Phasic: Augmentation -Normal: Reflux - None. 3. Popliteal Vein: 3.1. Compressibility - Fully compressible: Thrombus - None : Flow - Phasic: Augmentation -Normal: Reflux - None. 4. Posterior Tibial Vein: 4.1. Compressibility - Fully compressible: Thrombus - None: Flow - Phasic: Augmentation -Normal: Reflux - None. 5. Peroneal Vein: 5.1. Compressibility - Fully compressible: Thrombus - None: Flow - Phasic: Augmentation -Normal: Reflux - None. 6. Great Saphenous Vein: 6.1. Compressibility - Fully compressible: Thrombus - None: Flow - Phasic: Augmentation - Normal: Reflux - None. OTHER FINDINGS: Right: None significant. Left: None significant. IMPRESSION: Right: No evidence of deep or superficial vein thrombosis of the right lower extremity. Normal valve function noted of the right side. Left: No evidence of deep or superficial vein thrombosis of the left lower extremity. Normal valve function noted of the left side.
--- NOTE | 2017-07-13 14:23 | DS ---
CHIEF COMPLAINT: Weakness and neurological deficit. HISTORY OF PRESENT ILLNESS: Ms. Aimee Bonilla is 56 years old lady, [place] with past medical history of hypertension, came to the emergency room department by EMS complaining of right-sided weakness and headache while she was driving. The patient denies prior history of similar symptoms and denies any chest pain, shortness of breath, nausea, vomiting, or diarrhea. No hematuria or hematochezia. No fever. No chills. The patient's son and myewlhnq-[id number] were standing at the patient's bedside. They did translation for me. We admitted the patient, did CAT scan of the head, head and neck CTA, chest x-ray, electrocardiography, carotid Doppler of the neck, brain MRA, head MRA, neck MRA, Doppler study of the extremities, again repeat CAT scan of the head. Seen by Dr. Nolberto Youssef, neurologist. Patient improved, got physical therapy, discharged home after clearing from Neurology. Need physical therapy as outpatient. Discussion done with patient's son multiple times and two [id number]. Educated to follow up with neurologist, primary care physician, and physical therapy. PAST MEDICAL HISTORY: Hypertension, obesity. PAST SURGICAL HISTORY: Nonsignificant. FAMILY HISTORY: Father and mother noncontributory. HABITS: Never smoked. No drug. No ethanol. ALLERGIES: PATIENT IS NOT ALLERGIC WITH ANY MEDICATIONS. HOME MEDICATIONS: She does not remember. REVIEW OF SYSTEMS: Patient is seen and examined at the bedside. Looking comfortable. No nausea, vomiting, or diarrhea. No hematuria. No hematochezia. Oriented x3. Moving all four extremities. Sometimes complaining about headache. No blurring of vision. PHYSICAL EXAMINATION: VITAL SIGNS: Temperature 98.0, pulse 85, respirations 20, blood pressure 139/82, pulse oximetry 97. HEENT: Head normocephalic and atraumatic. Eyes PERRLA. EOMs intact. Conjunctivae clear. Nose patent. NECK: Supple. No carotid bruits. No JVD. No thyromegaly. CHEST: Bilaterally symmetrical. HEART: S1 and S2 positive. LUNGS: Clear to auscultation. ABDOMEN: Soft. Bowel sounds present. No organomegaly. EXTREMITIES: No edema. No cyanosis. NEUROLOGIC: Patient is awake and alert. Moving all 4 extremities. No focal deficit. MEDICATIONS: Diamox, aspirin, Plavix, Lovenox, vitamin B, Cozaar, Crestor. LABORATORY DATA: White blood cells 8.8, hemoglobin 14.1, hematocrit 41.6, platelets 364,000. Sodium 130, potassium 3.9, BUN 12, creatinine 0.7, glucose 94. ASSESSMENT AND PLAN: The patient has history of hypertension, hypercholesterolemia, obesity, hypertriglyceridemia. Plan is for echocardiography. Seen by Dr. Nolberto Youssef for cerebrovascular disease/transient ischemic attack,history of asthma. Physical therapy given. Patient was cleared by the neurologist with the condition that the patient has to do followup as outpatient. Gastrointestinal and deep vein thrombosis prophylaxis given. Lifestyle modification and diet discussed with the patient and the patient's family. Discharged the patient to home with the family. Allie Yanes MD
== END 2017-07-08 18:45 | disposition home or self-care (01) | DRG 891 ==
LOC: C.ER 13:27 → C.9E 15:07 → C.6T 18:40
PROVIDERS: ADMIT Internal Medicine; ATTEND Internal Medicine
DX: G93.2 Benign intracranial hypertension (principal); I10 Essential (primary) hypertension; E78.00 Pure hypercholesterolemia, unspecified; R29.705 NIHSS score 5; I73.9 Peripheral vascular disease, unspecified; J45.909 Unspecified asthma, uncomplicated; E78.1 Pure hyperglyceridemia; Z79.82 Long term (current) use of aspirin

== ENCOUNTER 2017-07-19 13:32 | Day surgery (SDC) | payer MEDICAID ==
[2017-07-19] MEDS ORDERED: Lidocaine 2% Inj (20ml) ONE (13:49)
[2017-07-19 14:50] VITALS: BMI 31.8
--- NOTE | 2017-07-19 14:54 | PCM.PROC ---
Procedures Attestation:: I certify that I have explained the specified Operation(s) or Procedure(s), risks, benefits and reasonable alternatives to the Patient and/or other person responsible. The opportunity was given to ask questions and all questions answered - Lumbar Puncture Consent Obtained: Written Consent Time Out Performed: Yes Patient Position: Right Lateral Decubitius Skin Prep: Povidone-Iodine 1% Local Anesthetic Used: Lidocaine 1% Spinal Needle Gauge: 22G Interspace Used: L3-L4 Opening Pressure (cmH2O): 28 Fluid Initially Obtained: Clear Complications: None
[2017-07-19 15:14] LABS: FLUID TYPE SPINAL FLUID
[2017-07-19 15:27] LABS: CSF APPEARANCE CLEAR/COLORLESS (CLEAR)
[2017-07-19 15:28] LABS: CSF MONO/MACROPHAGE 0 % (0-0)
[2017-07-19 15:31] LABS: CSF VOLUME 6 mL (0-1)
[2017-07-23 03:08] LABS: CSF ALPHA-2-GLOBULIN 6.4 % (4.6-10.8); CSF BETA GLOBULIN 19.5 % (7.8-18.2); CSF GAMMA GLOBULIN 18.7 % (4.8-17.6); CSF PRE-ALBUMIN 5.4 % (1.3-6.9)
== END 2017-07-19 15:50 | disposition home or self-care (01) ==
LOC: C.SPRAD 13:32
PROVIDERS: ATTEND General Practice
DX: G93.2 Benign intracranial hypertension (principal)

== ENCOUNTER 2017-07-28 22:34 | Inpatient (IN) | payer MEDICAID ==
[2017-07-28 22:36] VITALS: BMI 31.8
--- NOTE | 2017-07-28 23:32 | C.PDOC ---
History Of Present Illness Patient brought to ED by family members for evaluation of RUE weakness that began approx 30 min [employer]. As per son, patient has h/o HTN, hyperlipidemia and two recent TIAs. Has LP done at [facility] on 07/19 - had had persistent headache since then. He she was sleeping tonight and woke up because she was SOB, then was unable to speak clearly and had right sided weakness. As per son, prior episodes presented in same manner. Neurologist- Dr. Youssef Time Seen by Provider: 07/28/17 23:11 Chief Complaint (Nursing): Weakness/Neurological Deficit History Per: Family History/Exam Limitations: clinical condition Onset/Duration Of Symptoms: Mins (30 min [employer]MI[employer]) Current Symptoms Are (Timing): Still Present Past Medical History Reviewed: Historical Data, Nursing Documentation, Vital Signs Vital Signs: Last Vital Signs Temp 97.4 F L 07/29/17 01:45 Pulse 59 L 07/29/17 01:45 Resp 20 07/29/17 01:45 BP 108/72 07/29/17 01:45 Pulse Ox 97 07/29/17 01:45 - Medical History PMH: HTN, Hypercholesterolemia Surgical History: Appendectomy, Cholecystectomy Family History: States: No Known Family Hx - Social History Hx Alcohol Use: No Hx Substance Use: No - Immunization History Hx Tetanus Toxoid Vaccination: No Hx Influenza Vaccination: No Hx Pneumococcal Vaccination: No Review Of Systems Review Of Systems: ROS cannot be obtained secondary to pt's inabilty to answer questions. Physical Exam - Physical Exam Appears: Non-toxic, In Acute Distress (appears mildly uncomfortable) Skin: Normal Color, Warm, Dry Head: Atraumatic, Normacephalic Eye(s): bilateral: Normal Inspection, PERRL, EOMI Oral Mucosa: Moist Tongue: Normal Appearing, No Swelling Lips: Normal Appearing Neck: Normal, Normal ROM, Supple Cardiovascular: Rhythm Regular Respiratory: Normal Breath Sounds, No Rales, No Rhonchi, No Wheezing Gastrointestinal/Abdominal: Normal Exam, Bowel Sounds, Soft, No Tenderness Extremity: Normal ROM, No Calf Tenderness, No Deformity Neurological/Psych: Oriented x3, No Normal Speech, Normal Cognition, No Normal Cranial Nerves (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), otherwise [employer]), No Normal Motor (2/5 motor strength RUE, 5/5 motor strength all other ext ), Normal Sensation, No Normal Reflexes ED Course And Treatment - Laboratory Results Result Diagrams: 07/28/17 23:39 07/28/17 23:39 ECG: Interpreted By Me, Viewed By Me (NSR 69 bpm, normal axis, ST depressions I , II, aVL) O2 Sat by Pulse Oximetry: 98 (RA) Pulse Ox Interpretation: Normal - Radiology CXR: Interpreted by Me, Viewed By Me (situs inversus, 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 SSN: [id number] : 1960. Study: CT HEAD WO Requesting Physician: CHANG CASON. Images: 114. Addl Studies : Provided Clinical History: Code Stroke. CONFIDENTIALITY STATEMENT. This transmission is confidential and is intended to be a privileged communication. It is intended only for the use of the addressee. Access to this. message by anyone else is unauthorized. If you are not the intended recipient, any disclosure, copying, distribution or any action taken, or omitted to. be taken in reliance on it is prohibited and may be unlawful. If you received this communication in error, please notify us by telephone, so that return. of this document to us can be arranged. Page 1 of 2. EXAM: CT Head Without Intravenous Contrast. EXAM DATE/TIME: 07/28/2017 11:25 PM. CLINICAL HISTORY: 56 years old, female; Condition or disease; Headache; Additional info: Code stroke. TECHNIQUE: Axial computed tomography images of the head/brain without intravenous contrast. All CT scans at. this facility use one or more dose reduction techniques, viz.: automated exposure control; ma/kV. adjustment per patient size (including targeted exams where dose is matched to indication; i.e. head);. or iterative reconstruction technique. COMPARISON: Prior head CT of 2017-07-08. FINDINGS: BRAIN: Stable appearance of a focal area of low density in the right basal ganglia, most compatible. with an old/chronic lacunar infarct. Diffuse, mild, age-related cortical atrophy and ventriculomegaly. No significant acute abnormality identified. No acute hemorrhage seen within the brain. No acute. extra-axial fluid collections visualized. No evidence of significant mass effect within the brain. No CT. findings to suggest an acute, large territorial infarct, however, small or early acute infarcts may not be. visible on CT. VENTRICLES: See above. BONES/ JOINTS: No acute fractures or other acute bony abnormality noted. [facility]. [facility] Radiology [facility]. Final Radiology Report [id number]. Name: KRYSTEN MORALES Age: 56Years F Date: 07/28/2017. SSN: [id number] : 1960. Study: CT HEAD WO Requesting Physician: CHANG CASON. Images: 114. Addl Studies: Provided Clinical History: Code Stroke. CONFIDENTIALITY STATEMENT. This transmission is confidential and is intended to be a privileged communication. It is intended only for the use of the addressee. Access to this. message by anyone else is unauthorized. If you are not the intended recipient, any disclosure, copying, distribution or any action taken, or omitted to. be taken in reliance on it is prohibited and may be unlawful. If you received this communication in error, please notify us by telephone, so that return. of this document to us can be arranged. Page 2 of 2. SOFT TISSUES: No acute abnormality of the visualized soft tissues is seen. SINUSES: Small mucus retention cysts in the right sphenoid and left maxillary sinuses. Remaining. visualized paranasal sinuses appear clear. MASTOID AIR CELLS: Mastoid air cells appear clear. IMPRESSION: - No acute findings seen within the brain. - See above for remaining findings. Thank you for allowing us to participate in the care of your patient. Dictated and Authenticated by: Marysol Snell MD. 07/28/2017 11:54 PM Eastern Time ([place] & [place]) Progress Note: Code stroke called. Blood work, CT head, EKG ordered and reviewed. After CT head neg for bleed, PO ASSA (243mg) given (patient already took 81mg this morning). 12:10am- Patient now has normal speech, headache improving, still has mild RUE weakness. - Physician Consult Information Physician Contacted: Teo Chen Outcome Of Conversation: Discussed patient with hospitalist, agrees with admission for TIA with Dr. Youssef for neurology. NIHSS Stroke Scale - Date/Time Evaluation Performed Date Performed: 07/28/17 Time Performed: 23:15 When Was NIHSS Performed: Baseline - How Severe is the Stoke Level of Consciousness: 0=Alert LOC to Questions: 2=Neither correct LOC to commands: 0=Obeys both correctly Best Gaze: 0=Normal Visual: 0=No visual loss Facial: 0=Normal Motor Arm - Left: 0=No drift Motor Arm - Right: 1=Drift noted before 10 sec Motor Leg - Left: 0=No drift Motor Leg - Right: 0=No drift Limb Ataxia: 0=Absent Sensory: 0=Normal Best Language: 1=Mild to moderate aphasia Dysarthia: 0=Normal articulation Extinction & Inattention (Neglect): 0=Normal, no object Score: 4 Severity Of Stroke: 1-4= Minor Stroke rTPA Inclusion/Exclusion - Refusal of Treatment Patient Refused Treatment: No - Inclusion Criteria for Altepase Patient is 18 years or Older: Yes The Clinical Diagnosis of Ischemic Stroke That is Causing a Potentially Disabling Neurological Deficit: Yes Time of Onset is Well Established to be Less Than 270 Minute Before Treatment Would Begin: Yes Risk/Benefit Discussed With Patient/Family Member Present: No - Warning to TPA With Conditions Condition: Rapid Improvement Disposition - Disposition Disposition: HOSPITALIZED Disposition Time: 00:43 Condition: STABLE - Clinical Impression Clinical Impression: TIA (transient ischemic attack) Decision To Admit - Pt Status Changed To: Hospital Disposition Of: Inpatient - Admit Certification Admit to Inpatient:: After my assessment, the patient will require hospitalization for at least two midnights. This is because of the severity of symptoms shown, intensity of services needed, and/or the medical risk in this patient being treated as an outpatient. - InPatient: Physician Admission Certification: I certify that this patient requires 2 or more midnights of care for the following reason:: see notes - . Bed Request Type: Telemetry Admitting Physician: Teo Chen Patient Diagnosis: TIA (transient ischemic attack)
[2017-07-28 23:43] LABS: BASO # 0.1 K/uL (0.0-0.2); BASO % 0.8 % (0.0-2.0); EOS # 0.3 K/uL (0.0-0.7); EOS % 3.4 % (0.0-4.0); HEMOGLOBIN 14.9 g/dL (11.0-16.0); LYMPH # 3.4 K/uL (1.0-4.3); LYMPH % 41.6 % (20.0-40.0); MEAN CELL VOLUME 82.2 fL (81.0-99.0); MEAN CORPUSCULAR HGB CONC 35.3 g/dL (33.0-37.0); MEAN PLATELET VOLUME 8.3 fL (7.2-11.7); MONO # 0.7 K/uL (0.0-0.8); NEUT # 3.7 K/uL (1.8-7.0); NEUT % 46.2 % (50.0-75.0); RBC 5.15 Mil/uL (3.80-5.20); RED CELL DISTRIBUTION WIDTH 13.1 % (11.5-14.5); WHITE BLOOD COUNT 8.1 K/uL (4.8-10.8)
[2017-07-28 23:51] LABS: PROTHROMBIN TIME 11.2 SECONDS (9.7-12.2)
--- NOTE | 2017-07-28 23:55 | CT ---
EXAM: CT Head Without Intravenous Contrast EXAM DATE/TIME: 07/28/2017 11:25 PM CLINICAL HISTORY: 56 years old, female; Condition or disease; Headache; Additional info: Code stroke TECHNIQUE: Axial computed tomography images of the head/brain without intravenous contrast. All CT scans at this facility use one or more dose reduction techniques, viz.: automated exposure control; ma/kV adjustment per patient size (including targeted exams where dose is matched to indication; i.e. head); or iterative reconstruction technique. COMPARISON: Prior head CT of 2017-07-08 FINDINGS: BRAIN: Stable appearance of a focal area of low density in the right basal ganglia, most compatible with an old/chronic lacunar infarct. Diffuse, mild, age-related cortical atrophy and ventriculomegaly. No significant acute abnormality identified. No acute hemorrhage seen within the brain. No acute extra-axial fluid collections visualized. No evidence of significant mass effect within the brain. No CT findings to suggest an acute, large territorial infarct, however, small or early acute infarcts may not be visible on CT. VENTRICLES: See above. BONES/JOINTS: No acute fractures or other acute bony abnormality noted. SOFT TISSUES: No acute abnormality of the visualized soft tissues is seen. SINUSES: Small mucus retention cysts in the right sphenoid and left maxillary sinuses. Remaining visualized paranasal sinuses appear clear. MASTOID AIR CELLS: Mastoid air cells appear clear. IMPRESSION: - No acute findings seen within the brain. - See above for remaining findings.
[2017-07-28 23:57] LABS: ALB/GLOB RATIO 1.2 (1.0-2.1); ALBUMIN 4.6 g/dL (3.5-5.0); ALT/SGPT 37 U/L (9-52); AST/SGOT 30 U/L (14-36); BLOOD UREA NITROGEN 10 mg/dL (7-17); CALCIUM 8.9 mg/dl (8.6-10.4); GFR AFRICAN-AMERICAN > 60; GFR NON-AFRICAN AMERICAN > 60; HDL CHOLESTEROL 52 mg/dL (30-70)
[2017-07-29 00:06] LABS: LDL CHOLESTEROL 76 mg/dL (0-129)
--- NOTE | 2017-07-29 05:51 | CP.PCM.PN ---
Subjective - Date & Time of Evaluation Date of Evaluation: 07/29/17 Time of Evaluation: 05:39 - Subjective Subjective: Assessment * Recurrence of symptoms of stiffness, syncope with quick resolution 1st on 07/05 , then 07/20, then last night, with poor opening of eye with contraction of orbicularis occuli rather weak superior rectus on right side, with voluntary contraction of facial muscles on right with spontaneous resolution when not observed. Following also suggest symptoms pointing to wards conversion disorder. * Confabulation in story patient being stiff at home with symptoms needing to be carried over by son but awake and responding with eye contact but then inability to remember being carried in the car * Initial event on 07/05 patient in car driving but able to plant puller and park before having seizure with symptoms improving spontaneously in ER * No prior h/o recurrent chronic headache suggesting complicated migraine * H/o similar symptoms about 4 yrs back when patient's elder son then improvement, patient still following psychologist due to prolonged symptoms. * Recent headache since LP on 07/19 done for checking CSF pressure, was 28 as documented patient was started on diamox for same reason * Patient will also need fundus exam to check any signs of pressure. * * Small portion of cerebellar tonsils in the foramen magnum? anatomical variation vs increased CSF pressure. * Situs inversis Plan * Observation * Neurology consult * Psych consult for suspected conversion * GI/DVT prophylaxis. * See orders for detail. Objective - Vital Signs/Intake and Output Vital Signs (last 24 hours): Temp Pulse Resp BP Pulse Ox 97.4 F L 59 L 20 108/72 98 07/29/17 01:45 07/29/17 01:45 07/29/17 01:45 07/29/17 01:45 07/29/17 03:44 - Labs Labs: 07/28/17 23:39 07/28/17 23:39 PT 11.2 SECONDS (9.7-12.2) 07/28/17 23:39 INR 1.0 07/28/17 23:39 APTT 31 SECONDS (21-34) 07/28/17 23:39
--- NOTE | 2017-07-29 06:08 | CP.PCM.HP ---
History of Present Illness - History of Present Illness History of Present Illness: Medicine H/P CC: DUGGAN, AMS, Body stiffness, R. eye closing HPI: Patient is a 56 F with a PMH of a questionable TIA comes in after she had an episode of breif syncope, confusion, inability to open the R. eye whole body stiffness and aphasia with quick resolution. She has had this prior, one on 07/05 where she was driving however she was able to pull the car over before having a "seizure" and passing out although she had full resolution of the symptoms on presentation to the ED. She again had these symptoms on 07/20 and again last night. During the interview her R. eye was closed but would intermittently open when questioning her family members. her son who brought her to the ED states that today when she was stiff at home with her arms contracted and her legs stiff with toes pointed downward. He carried her to the car but was able to bend all the extremities at that time. Earlier she was unable to speak at her home and had her jaw clenched and would not speak however she would look at her son when he would question her. She is able to speak during our examination and is not contracted. On 07/19 she had an LP done and has since been complaining of severe DUGGAN. Patient son states that all of these sx occurred after her son in 4 years ago. Present on Admission - Present on Admission Any Indicators Present on Admission: No Review of Systems - Review of Systems Review of Systems: per HPI Past Patient History - Past Medical History & Family History Past Medical History?: Yes - Past Social History Smoking Status: Never Smoked - CARDIAC Hx Cardiac Disorders: Yes Hx Hypercholesterolemia: Yes Hx Hypertension: Yes - PULMONARY Hx Respiratory Disorders: No - NEUROLOGICAL Hx Neurological Disorder: Yes Hx Transient Ischemic Attacks (TIA): Yes (TIA x 3 since 07/05/17) Hx Vertigo: No - HEENT Hx HEENT Problems: No - RENAL Hx Chronic Kidney Disease: No - ENDOCRINE/METABOLIC Hx Endocrine Disorders: No - HEMATOLOGICAL/ONCOLOGICAL Hx Blood Disorders: No - INTEGUMENTARY Hx Dermatological Problems: No - MUSCULOSKELETAL/RHEUMATOLOGICAL Hx Musculoskeletal Disorders: No Hx Falls: No - GASTROINTESTINAL Hx Gastrointestinal Disorders: No - GENITOURINARY/GYNECOLOGICAL Hx Genitourinary Disorders: No - PSYCHIATRIC Hx Psychophysiologic Disorder: No Hx Substance Use: No - SURGICAL HISTORY Hx Surgeries: Yes Hx Appendectomy: Yes Hx Cholecystectomy: Yes Hx Hysterectomy: Yes - ANESTHESIA Hx Anesthesia: Yes Hx Anesthesia Reactions: No Hx Malignant Hyperthermia: No Meds Allergies/Adverse Reactions: Allergies Allergy/AdvReac Type Severity Reaction Status Date / Time No Known Allergies Allergy Verified 07/28/17 22:49 Physical Exam - Constitutional Appears: Well, Non-toxic, No Acute Distress - Head Exam Head Exam: ATRAUMATIC, NORMAL INSPECTION, NORMOCEPHALIC - Eye Exam Additional comments: drooping of the R. eye lid - ENT Exam ENT Exam: Mucous Membranes Dry - Respiratory Exam Respiratory Exam: Clear to Auscultation Bilateral, NORMAL BREATHING PATTERN - Cardiovascular Exam Cardiovascular Exam: REGULAR RHYTHM - GI/Abdominal Exam GI & Abdominal Exam: Normal Bowel Sounds, Soft. absent: Distended, Tenderness - Extremities Exam Extremities exam: Negative for: joint swelling, tenderness - Neurological Exam Neurological exam: Alert, CN II-XII Intact, Oriented x3 - Expanded Neurological Exam Expanded Neurological exam: Protecting the Airway Patient oriented to: person, place, time Speech: Fluid Speech Cranial nerves: EOM's Intact: Normal (drooping of R. eyelid periodically during exam), Facial Sensation: Abnormal Right (less on R compared to L) Upper motor neuron: Babinski Sign: Normal Sensory exam: Lower Extremity Light Touch: Abnormal Right, Upper Extremity Light Touch: Abnormal Right Neuro motor strength exam: Left Upper Extremity: 5, Right Upper Extremity: 5, Left Lower Extremity: 5, Right Lower Extremity: 5 Coma Scale Eye Opening: SPONTANEOUS Coma Scale Motor Response: OBEYS COMMANDS Coma Scale Verbal: Oriented Coma Scale Total: 15 - Psychiatric Exam Psychiatric exam: Normal Affect, Normal Mood - Skin Skin Exam: Dry, Intact, Normal Color, Warm Results - Vital Signs Recent Vital Signs: Last Vital Signs Temp 97.4 F L 07/29/17 01:45 Pulse 57 L 07/29/17 05:54 Resp 20 07/29/17 01:45 BP 108/72 07/29/17 01:45 Pulse Ox 98 07/29/17 03:44 - Labs Result Diagrams: 07/28/17 23:39 07/28/17 23:39 Labs: Laboratory Results - last 24 hr 07/28/17 07/28/17 07/28/17 23:30 23:39 23:39 WBC 8.1 RBC 5.15 Hgb 14.9 Hct 42.3 MCV 82.2 MCH 29.0 MCHC 35.3 RDW 13.1 Plt Count 330 MPV 8.3 Neut % (Auto) 46.2 L Lymph % (Auto) 41.6 H Phelps % (Auto) 8.0 Eos % (Auto) 3.4 Baso % (Auto) 0.8 Neut # 3.7 Lymph # 3.4 Phelps # 0.7 Eos # 0.3 Baso # 0.1 PT 11.2 INR 1.0 APTT 31 Sodium Potassium Chloride Carbon Dioxide Anion Gap BUN Creatinine Est GFR ( Amer) Est GFR (Non-Af Amer) Random Glucose Hemoglobin A1c Calcium Total Bilirubin AST ALT Alkaline Phosphatase Troponin I Total Protein Albumin Globulin Albumin/Globulin Ratio Triglycerides Cholesterol LDL Cholesterol Direct HDL Cholesterol Blood Type A NEGATIVE Antibody Screen Negative 07/28/17 07/28/17 23:39 23:39 WBC RBC Hgb Hct MCV MCH MCHC RDW Plt Count MPV Neut % (Auto) Lymph % (Auto) Phelps % (Auto) Eos % (Auto) Baso % (Auto) Neut # Lymph # Phelps # Eos # Baso # PT INR APTT Sodium 136 Potassium 3.5 L Chloride 103 Carbon Dioxide 23 Anion Gap 13 BUN 10 Creatinine 0.8 Est GFR ( Amer) > 60 Est GFR (Non-Af Amer) > 60 Random Glucose 119 H Hemoglobin A1c 5.9 Calcium 8.9 Total Bilirubin 0.3 AST 30 ALT 37 Alkaline Phosphatase 70 Troponin I < 0.0120 Total Protein 8.5 H Albumin 4.6 Globulin 3.9 Albumin/Globulin Ratio 1.2 Triglycerides 210 H Cholesterol 154 LDL Cholesterol Direct 76 HDL Cholesterol 52 Blood Type Antibody Screen Assessment & Plan (1) Conversion disorder Assessment and Plan: Neurology (Domonique) Psych (Aman) Status: Chronic Priority: High (2) Intracranial pressure increased Assessment and Plan: Neuro (Domonique) acetazolamide 500 PO BID Normal LP by Dr. Youssef done CT on 07/08 show slight herniation of cerebellar tonsils thru foramen magnum. Can be normal variant. No acute infarct MRI on 07/06 shows similar findings Status: Acute (3) HTN (hypertension) Assessment and Plan: cozaar 100 PO QD Status: Chronic Priority: Medium (4) HLD (hyperlipidemia) Assessment and Plan: Crestor 10 PO HS Status: Chronic Priority: Medium (5) Prophylactic measure Assessment and Plan: Pepcid 20 PO BID Heparin 5000 SC Q12 Status: Acute Priority: Medium
[2017-07-29] MEDS ORDERED: Valproate 500 MG in Sodium Chloride 0.9% 100 ML IVPB ONE (08:15)
--- NOTE | 2017-07-29 08:26 | RAD ---
HISTORY: CODE STROKE COMPARISON: 07/05/2017 FINDINGS: LUNGS: No active pulmonary disease. PLEURA: No significant pleural effusion identified, no pneumothorax apparent. CARDIOVASCULAR: The heart is right-sided. The aortic arch is right-sided. This is based upon the assumption of correct labeling of the film and upon the prior chest radiograph. The heart size is normal. There is no congestive change. OSSEOUS STRUCTURES: No significant abnormalities. VISUALIZED UPPER ABDOMEN: Normal. OTHER FINDINGS: None. IMPRESSION: No infiltrate. Situs inversus.
--- NOTE | 2017-07-29 08:44 | CP.PCM.PN ---
Subjective - Date & Time of Evaluation Date of Evaluation: 07/29/17 Time of Evaluation: 08:42 - Subjective Subjective: Medicine Progress Note: Hospitalist Service Patient seen and examined at bedside. Per nursing no acute events overnight. Patient states that she is still having a headache that is constant in nature. Also reports having constipation, last BM was 3 days ago. Denies dizziness, visual changes, changes in speech, cp, palpitations, sob, abdominal pain, urinary symptoms. Objective - Vital Signs/Intake and Output Vital Signs (last 24 hours): Temp Pulse Resp BP Pulse Ox 98.1 F 65 20 90/65 L 98 07/29/17 08:17 07/29/17 08:17 07/29/17 08:17 07/29/17 08:17 07/29/17 08:17 - Medications Medications: Current Medications Acetazolamide (Diamox Sequels 500 Mg Sr Cap) 500 mg PO BID CORNELIA Aspirin (Aspirin Chewable) 81 mg PO DAILY CORNELIA Docusate Sodium (Colace) 100 mg PO BID CORNELIA Famotidine (Pepcid) 20 mg PO BID CORNELIA Heparin Sodium (Porcine) (Heparin) 5,000 units SC Q12 CORNELIA Magnesium Sulfate/Dextrose (Magnesium Sulfate 1 Gm/100 Ml D5w) 1 gm in 100 mls @ 100 mls/hr IVPB Q1H CORNELIA Stop: 07/29/17 10:14 Valproate Sodium 500 mg/ (Sodium Chloride) 105 mls @ 100 mls/hr IVPB ONCE ONE Stop: 07/29/17 09:17 Losartan Potassium (Cozaar) 100 mg PO DAILY CORNELIA Rosuvastatin Calcium (Crestor) 10 mg PO HS CORNELIA - Labs Labs: 07/28/17 23:39 07/28/17 23:39 PT 11.2 SECONDS (9.7-12.2) 07/28/17 23:39 INR 1.0 07/28/17 23:39 APTT 31 SECONDS (21-34) 07/28/17 23:39 - Constitutional Appears: Well, No Acute Distress - Head Exam Head Exam: ATRAUMATIC, NORMAL INSPECTION - Eye Exam Eye Exam: PERRL Pupil Exam: NORMAL ACCOMODATION, PERRL Additional comments: +resistence in opening right eye - ENT Exam ENT Exam: Mucous Membranes Moist - Respiratory Exam Respiratory Exam: Clear to Ausculation Bilateral, NORMAL BREATHING PATTERN. absent: Rales, Rhonchi, Wheezes - Cardiovascular Exam Cardiovascular Exam: REGULAR RHYTHM, +S1, +S2 - GI/Abdominal Exam GI & Abdominal Exam: Soft, Normal Bowel Sounds. absent: Firm, Guarding, Rigid, Tenderness - Rectal Exam Rectal Exam: Deferred - Extremities Exam Extremities Exam: Normal Inspection. absent: Calf Tenderness - Back Exam Back Exam: NORMAL INSPECTION - Neurological Exam Neurological Exam: Alert, Awake, Oriented x3 Neuro motor strength exam: Left Upper Extremity: 5, Right Upper Extremity: 5, Left Lower Extremity: 5, Right Lower Extremity: 5 - Psychiatric Exam Psychiatric exam: Depressed, Normal Affect - Skin Skin Exam: Dry, Normal Color, Warm Assessment and Plan - Assessment and Plan (Free Text) Assessment: 1) Conversion Disorder ? -Stable, afebrile -Head CT showed no acute findings -EEG completed, f/u official read -On physical exam, there was resistence in opening R eye -Will order Lyme studies -Neurology, Dr Jean, on consult, f/u recommendations -Psych on consult, Dr Newton, f/u recommendations 2) Intracranial Hypertension -Patient had lumbar puncture done 07/19/[address] Youssef -LP showed slight elevated ICP -Continue Acetazolamide 500mg PO BID -Received Mag sulfate, Decadron, Valproic acid -EEG completed, f/u official read -Head CT on admission showed no acute findings 3) Anxiety/Depression -Patient states that her son 5 years ago -Per her son, [facility], patient was on psych medications in the past and stopped taking them -Zoloft 50mg daily -Atarax 25mg PO BID -Trazodone 50mg PO QHS -Psych on consult, f/u recommendations 4) History of Hypertension -Cozaar 100mg PO daily 5) Hypertrigylceridemia -Triglycerides 210 -Crestor 10mg PO HS -Aspirin 81mg daily 6) Questionable TIA? -On prior episode on 07/05/17 -Continue crestor 5mg HS -ASA 81mg PO daily Prophylactic Measures Pepcid 20mg PO BID Heparin 5000U Q12H The son of the patient is Obed,
[2017-07-29] MEDS: Magnesium Sulfate 1 gm in D5W 1 GM/100 ML BAG IVPB SCH (08:48)
[2017-07-29] MEDS: acetaZOLAMIDE 500 mg SR Cap PO SCH ×2 (10:11→17:26)
--- NOTE | 2017-07-29 10:54 | PCM.PSYCH ---
Initial Psychiatric Evaluation - Initial Psychiatric Evaluation Chief Complaint (in patient's own words): " I am a little anxious and down at times" History of Present Illness and Precipitating Events: Psychiatric Consult for r/o conversion disorder The patient was seen, the chart was reviewed and the case was discussed. Patient is a 56 F with a PMH of a questionable TIA comes in after she had an episode of breif syncope, confusion, inability to open the R. eye whole body stiffness and aphasia with quick resolution. Psychiatry consult was placed in order to rule out possible underlying psychiatry diagnoses such as conversion disorder. Patient was admitted to the medical floor on Jul 05 for syncope/ dizziness, right frontal headache, right sided weakness, that occurred while she was driving. Upon arrival to the ED, patient's symptoms improved but had some residual right facial sensory loss with right arm sensory loss. All appropriate diagnostic imaging was normal during this admission. Patient was then discharge home upon clearance by neurology. Patient is a 56 year old female, works as realtor, lives alone in the [place] and with 5 adult children now (one of her sons 5 years ago), therefore, she had 6 children in total. Patient reports that she is very active and does everything on her own. Patient reports that after the of her son , she became very depressed and experienced some visual hallucination; patient was placed on an antidepressant, however, she stopped taking the medication due to side effects. Not too long after, patient started seeing a psychologist. Patient reports that when she was asked about suicidal ideation by psychologist approximately a month, patient responded that she felt that dying would be better for her. During the encounter, patient states that she has been feeling down for the past 6 months and has days when she did not want to leave her house and many sleepless night. Patient states that she has various episodes of possibly "panic attack/ anxiety" and the feeling that someone is watching her. Patient reports that during such episodes, she becomes really short of breath, flushed and feels dizzy. During the encounter, patient denies suicidal ideation, visual or auditory hallucinations. Past Psych: Depression PMHx: HTN, questionable TIA Family psych hx: denies Current Medications: Active Medications Generic Name Dose Route Start Last Admin Trade Name Freq PRN Reason Stop Dose Admin Acetazolamide 500 mg 07/29/17 10:00 07/29/17 10:11 Diamox Sequels 500 Mg Sr Cap PO 500 mg BID CORNELIA Administration Aspirin 81 mg 07/29/17 10:00 07/29/17 10:10 Aspirin Chewable PO 81 mg DAILY CORNELIA Administration Docusate Sodium 100 mg 07/29/17 10:00 07/29/17 10:11 Colace PO 100 mg BID CORNELIA Administration Famotidine 20 mg 07/29/17 10:00 07/29/17 10:11 Pepcid PO 20 mg BID CORNELIA Administration Heparin Sodium (Porcine) 5,000 units 07/29/17 10:00 07/29/17 10:10 Heparin SC 5,000 units Q12 CORNELIA Administration Losartan Potassium 100 mg 07/29/17 10:00 07/29/17 10:11 Cozaar PO 100 mg DAILY CORNELIA Administration Rosuvastatin Calcium 10 mg 07/29/17 22:00 Crestor PO HS [facility] Past Psychiatric History - Past Psychiatric History Pertinent Medical Hx (Current Medical&Sleep Prob, Allergies): Allergies Allergy/AdvReac Type Severity Reaction Status Date / Time No Known Allergies Allergy Verified 07/28/17 22:49 Losartan [Cozaar] 100 mg PO DAILY 07/05/17 Aspirin [Aspirin Chewable] 81 mg PO DAILY #30 chew 07/08/17 Rosuvastatin Calcium [Crestor] 10 mg PO HS #30 tab 07/08/17 acetaZOLAMIDE [Diamox Sequels 500 mg SR Cap] 500 mg PO BID #60 cer 07/08/17 Review of Systems - Neurological Neurological: Dizziness, Weakness - Psychiatric Psychiatric: Abnormal Sleep Pattern, Anxiety, Panic Attacks, Paranoia. absent: Auditory Hallucinations, Hallucinations, Homicidal Ideation, Hopelessness, Irritability, Memory Loss, Mood Swings, Suicidal Ideation, Visual Hallucinations Mental Status Examination - Personal Presentation Personal Presentation: Looks stated age - Affect Affect: Other (Normal ) - Motor Activity Motor Activity: Calm - Reliability in Providing Information Reliability in Providing Information: Good - Speech Speech: Organized - Mood Mood: Depressed - Formal Thought Process Formal Thought Process: No Impairment - Obsessions/Compulsions Obsessions: No Compulsions: No - Cognitive Functions Orientation: Person, Place, Situation Sensorium: Alert Attention/Concentration: Attentive Estimate of Intelligence: Average Judgement: Intact, as evidence by: Insight regarding need for hospitalization - Strength & Assets Inventory Strength & Assets Inventory: Family support - Limitations Limitations: Living alone DSM 5 DX - DSM 5 DSM 5 Diagnosis: Anxiety (Unspecified) Depression Insomnia - Recommended/Plan of Treatment Treatment Recommendations and Plan of Treatment: Ataraz 25mg PO BID Zoloft 50mg PO daily Trazadone 50mg PO HS Psychoeducation given Support therapy and TX Referal to CRS 34 mins Prognosis: Good with treatment - Smoking Cessation Smoking Cessation Initiated: No Reason for not providing: Not a smoker
[2017-07-29 12:12] LABS: BASO # 0.1 K/uL (0.0-0.2); BASO % 1.1 % (0.0-2.0); EOS % 0.7 % (0.0-4.0); HEMOGLOBIN 14.4 g/dL (11.0-16.0); LYMPH # 1.2 K/uL (1.0-4.3); LYMPH % 23.9 % (20.0-40.0); MEAN CELL VOLUME 82.2 fL (81.0-99.0); MEAN CORPUSCULAR HEMOGLOBIN 29.3 pg (27.0-31.0); MEAN CORPUSCULAR HGB CONC 35.6 g/dL (33.0-37.0); MEAN PLATELET VOLUME 8.8 fL (7.2-11.7); MONO # 0.1 K/uL (0.0-0.8); MONO % 2.9 % (0.0-10.0); NEUT # 3.5 K/uL (1.8-7.0); NEUT % 71.4 % (50.0-75.0); NRBC % 0.2 % (0.0-2.0); RBC 4.94 Mil/uL (3.80-5.20); RED CELL DISTRIBUTION WIDTH 13.4 % (11.5-14.5); WHITE BLOOD COUNT 4.9 K/uL (4.8-10.8)
[2017-07-29 12:35] LABS: ALB/GLOB RATIO 1.1 (1.0-2.1); ALBUMIN 4.2 g/dL (3.5-5.0); ALT/SGPT 38 U/L (9-52); AST/SGOT 45 U/L (14-36); BLOOD UREA NITROGEN 11 mg/dL (7-17); CALCIUM 8.6 mg/dl (8.6-10.4); GFR AFRICAN-AMERICAN > 60; GFR NON-AFRICAN AMERICAN > 60; MAGNESIUM 2.8 mg/dL (1.6-2.3)
--- NOTE | 2017-07-29 18:05 | CP.PCM.CON ---
History of Present Illness - History of Present Illness History of Present Illness: CONSULT DICTATED POST SPINAL HEADACHE REPEAT MRI - NO ACUTE STROKE ARNOLD CHIARI MALFORMATION CONT ASA STATIN ARB HYDRATION IF STABLE AM DC HOME AND FOLLOW UP OP Past Patient History - Past Medical History & Family History Past Medical History?: Yes - Past Social History Smoking Status: Never Smoked - CARDIAC Hx Hypercholesterolemia: Yes Hx Hypertension: Yes - PULMONARY Hx Respiratory Disorders: No - NEUROLOGICAL Hx Neurological Disorder: Yes Hx Transient Ischemic Attacks (TIA): Yes (TIA x 3 since 07/05/17) Hx Vertigo: No - HEENT Hx HEENT Problems: No - RENAL Hx Chronic Kidney Disease: No - ENDOCRINE/METABOLIC Hx Endocrine Disorders: No - HEMATOLOGICAL/ONCOLOGICAL Hx Blood Disorders: No - INTEGUMENTARY Hx Dermatological Problems: No - MUSCULOSKELETAL/RHEUMATOLOGICAL Hx Musculoskeletal Disorders: No Hx Falls: No - GASTROINTESTINAL Hx Gastrointestinal Disorders: No - GENITOURINARY/GYNECOLOGICAL Hx Genitourinary Disorders: No - PSYCHIATRIC Hx Psychophysiologic Disorder: No Hx Substance Use: No - SURGICAL HISTORY Hx Surgeries: Yes Hx Appendectomy: Yes Hx Cholecystectomy: Yes Hx Hysterectomy: Yes - ANESTHESIA Hx Anesthesia: Yes Hx Anesthesia Reactions: No Hx Malignant Hyperthermia: No Meds Allergies/Adverse Reactions: Allergies Allergy/AdvReac Type Severity Reaction Status Date / Time No Known Allergies Allergy Verified 07/28/17 22:49 - Medications Medications: Current Medications Acetazolamide (Diamox Sequels 500 Mg Sr Cap) 500 mg PO BID [facility] Last Admin: 07/29/17 17:26 Dose: 500 mg Aspirin (Aspirin Chewable) 81 mg PO DAILY [facility] Last Admin: 07/29/17 10:10 Dose: 81 mg Docusate Sodium (Colace) 100 mg PO BID [facility] Last Admin: 07/29/17 17:26 Dose: 100 mg Famotidine (Pepcid) 20 mg PO BID [facility] Last Admin: 07/29/17 17:26 Dose: 20 mg Heparin Sodium (Porcine) (Heparin) 5,000 units SC Q12 [facility] Last Admin: 07/29/17 10:10 Dose: 5,000 units Hydroxyzine HCl (Atarax) 25 mg PO BID [facility] Last Admin: 07/29/17 17:26 Dose: 25 mg Dextrose/Sodium Chloride (Dextrose 5%/0.45% Ns 1000 Ml) 1,000 mls @ 80 mls/hr IV .[id number] [facility] Losartan Potassium (Cozaar) 100 mg PO DAILY [facility] Last Admin: 07/29/17 10:11 Dose: 100 mg Rosuvastatin Calcium (Crestor) 10 mg PO HS [facility] Sertraline HCl (Zoloft) 50 mg PO DAILY [facility] Last Admin: 07/29/17 13:41 Dose: 50 mg Trazodone HCl (Desyrel) 50 mg PO HS [facility] Results - Vital Signs Recent Vital Signs: Last Vital Signs Temp 97.9 F 07/29/17 15:20 Pulse 80 07/29/17 16:40 Resp 18 07/29/17 15:20 BP 122/68 07/29/17 15:20 Pulse Ox 98 07/29/17 15:20 - Labs Result Diagrams: 07/29/17 11:49 07/29/17 11:49 Labs: Laboratory Results - last 24 hr 07/28/17 07/28/17 07/28/17 23:30 23:39 23:39 WBC 8.1 RBC 5.15 Hgb 14.9 Hct 42.3 MCV 82.2 MCH 29.0 MCHC 35.3 RDW 13.1 Plt Count 330 MPV 8.3 Neut % (Auto) 46.2 L Lymph % (Auto) 41.6 H [place] % (Auto) 8.0 Eos % (Auto) 3.4 Baso % (Auto) 0.8 Neut # 3.7 Lymph # 3.4 [place] # 0.7 Eos # 0.3 Baso # 0.1 PT 11.2 INR 1.0 APTT 31 Sodium Potassium Chloride Carbon Dioxide Anion Gap BUN Creatinine Est GFR ( Amer) Est GFR (Non-Af Amer) POC Glucose (mg/dL) Random Glucose Hemoglobin A1c Calcium Phosphorus Magnesium Total Bilirubin AST ALT Alkaline Phosphatase Troponin I Total Protein Albumin Globulin Albumin/Globulin Ratio Triglycerides Cholesterol LDL Cholesterol Direct HDL Cholesterol Blood Type A NEGATIVE Antibody Screen Negative 07/28/17 07/28/17 07/29/17 23:39 23:39 11:49 WBC 4.9 RBC 4.94 Hgb 14.4 Hct 40.6 MCV 82.2 MCH 29.3 MCHC 35.6 RDW 13.4 Plt Count 344 MPV 8.8 Neut % (Auto) 71.4 Lymph % (Auto) 23.9 [place] % (Auto) 2.9 Eos % (Auto) 0.7 Baso % (Auto) 1.1 Neut # 3.5 Lymph # 1.2 [place] # 0.1 Eos # 0.0 Baso # 0.1 PT INR APTT Sodium 136 Potassium 3.5 L Chloride 103 Carbon Dioxide 23 Anion Gap 13 BUN 10 Creatinine 0.8 Est GFR ( Amer) > 60 Est GFR (Non-Af Amer) > 60 POC Glucose (mg/dL) Random Glucose 119 H Hemoglobin A1c 5.9 Calcium 8.9 Phosphorus Magnesium Total Bilirubin 0.3 AST 30 ALT 37 Alkaline Phosphatase 70 Troponin I < 0.0120 Total Protein 8.5 H Albumin 4.6 Globulin 3.9 Albumin/Globulin Ratio 1.2 Triglycerides 210 H Cholesterol 154 LDL Cholesterol Direct 76 HDL Cholesterol 52 Blood Type Antibody Screen 07/29/17 07/29/17 11:49 17:14 WBC RBC Hgb Hct MCV MCH MCHC RDW Plt Count MPV Neut % (Auto) Lymph % (Auto) [place] % (Auto) Eos % (Auto) Baso % (Auto) Neut # Lymph # [place] # Eos # Baso # PT INR APTT Sodium 135 Potassium 4.1 Chloride 104 Carbon Dioxide 20 L Anion Gap 15 BUN 11 Creatinine 0.7 Est GFR ( Amer) > 60 Est GFR (Non-Af Amer) > 60 POC Glucose (mg/dL) 149 H Random Glucose 115 H Hemoglobin A1c Calcium 8.6 Phosphorus 3.3 Magnesium 2.8 H Total Bilirubin 0.5 AST 45 H D ALT 38 Alkaline Phosphatase 61 Troponin I Total Protein 8.0 Albumin 4.2 Globulin 3.8 Albumin/Globulin Ratio 1.1 Triglycerides Cholesterol LDL Cholesterol Direct HDL Cholesterol Blood Type Antibody Screen
[2017-07-29] MEDS: Dextrose 5%/0.45% NS 1,000 ML IV SCH (18:09)
--- NOTE | 2017-07-29 18:23 | MRI ---
PROCEDURE: MRI of the brain dated 07/29/2017. HISTORY: R/O Stroke COMPARISON: Comparison made with CT scan of the brain 07/28/2017. TECHNIQUE: Multiplanar, multisequence MR images of the brain were obtained without intravenous contrast enhancement. FINDINGS: HEMORRHAGE: No acute parenchymal, subarachnoid or extra-axial hemorrhage. DWI: No evidence of an acute or early subacute infarction. BRAIN PARENCHYMA: Chiari 1 malformation. . Recommend followup bulla MRI of the cervical and thoracic spine to assess for syrinx cavity formation known to recurrent patients with Chiari 1 malformation. There is multiple tiny focal areas of increased T2 signal seen scattered about deep and subcortical white matter both cerebral hemispheres nonspecific. Rule out sequela of small vessel disease. Differential diagnosis for this could include sequela of migraine headaches, old trauma or post inflammatory/ post infectious sequela. Atypical presentation of a demyelinating disease process would be less likely in the absence of a pertinent clinical history however not completely excluded. Mild age-appropriate volume loss. VENTRICLES: No obstructive hydrocephalus. CRANIUM: No acute calvarial abnormalities are identified. . ORBITS: Orbits and contents grossly unremarkable. . PARANASAL SINUSES/MASTOIDS: Focal areas of polypoid like mucosal thickening seen within both maxillary antra right larger than left and to a lesser degree right chamber sphenoid sinus. Minor mucosal thickening within the ethmoid air complex also seen. VASCULAR SYSTEM: Visualized major vascular flow voids at skull base are patent. OTHER FINDINGS: None. IMPRESSION: Chiari 1 malformation. . Recommend followup MRI of the cervical and thoracic spine to assess for syrinx cavity which are known to recurrent Chiari 1 malformation. No evidence of acute intracranial hemorrhage or infarct. Multiple small focal areas of increased T2 signal scattered about the deep and subcortical white matter of both cerebral hemispheres. Changes are nonspecific however could represent chronic sequela of small vessel disease. See above discussion for additional differential diagnostic considerations.
[2017-07-30 01:38] VITALS: RESP 20
--- NOTE | 2017-07-30 03:28 | CON ---
DATE: UNIT NUMBER: [id number] REASON FOR CONSULTATION: Possible stroke and conversion disorder. CHIEF COMPLAINT: The patient was brought in by family members with a history of woke up with headache, dizziness, and headache after she went to bed at 9:00 last night. Because of the symptoms are persistent and losing her balance, she decided to come to the hospital as per her family members. She came in. At present, the headache is not that severe, still she is having headache and lightheadedness. No double vision, no bulbar dysfunction. No focal weakness except mild right-sided weakness as she has been having it before. She had a recent admission at [facility] in the past, had been admitted for TIA and she did have a spinal tap. Following spinal tap, she did have a headache and headache had been treated at [facility] with hydration. Patient was discharged from there and she did have a headache continuously at present. No fever. No shortness of breath. No chest pain. PAST MEDICAL HISTORY: Hypertension, dyslipidemia. PAST SURGICAL HISTORY: Cholecystectomy and appendectomy. PERSONAL HISTORY: Denies smoking or alcohol use. REVIEW OF SYSTEMS: A 16-point review of systems being reviewed. From neuro, right-sided weakness, slurred speech and headache. MEDICATIONS: Aspirin, Atarax, Colace, Cozaar, Crestor, Desyrel, Diamox, heparin, Pepcid, sertraline. PHYSICAL EXAMINATION: VITAL SIGNS: Blood pressure 122/68, mean artery pressure of 86, respiratory 16, temperature afebrile. NECK: Supple. No carotid bruit. HEART: Sounds regular. CHEST: Fair air entry. EXTREMITIES: No edema in legs. NEUROLOGICAL EXAMINATION: Mental status: She is awake, alert, oriented to person, place and time. The patient is examined in the presence of her son. Speech is clear. Follows 2 to 3-step complex command. Cranial Nerve Examination: Visual field is intact. Pupils are reactive to light. Extraocular movements are normal. No nystagmus. No facial sensory deficit. No facial asymmetry. Hearing is normal. Tongue is midline. Good gag. Motor Examination: On outstretched hand with eyes closed, no drift noted. Power is symmetrical on either side. Subjective weakness slightly noted on the right upper extremity. Deep tendon reflexes absent throughout. Plantars are downgoing. Sensory Examination: Grossly intact. No extinction to double simultaneous stimuli. On finger-nose testing, consistently dysmetria on the right-sided finger-nose testing. On standing, she is leaning to backwards. She was not able to march in one place because of the weakness on the right side. WORKUP: Blood workup: WBC 4.9, hemoglobin of 14.4, hematocrit 40.6 and platelets 344. PT 11.2, INR 1.0, PTT 31. Sodium 135, potassium 4.1, chloride 104, bicarbonate 20, BUN 11, GFR more than 60, glucose 149, glucose 115. Magnesium 2.8, AST 45, ALT 38, triglyceride 210, cholesterol 154, LDL 76, HDL 52. CT of the head at the time of the admission does not show any focal pathology. EKG, normal sinus rhythm. CONCLUSION: Ms. Aimee Bonilla has been presenting with recurrent episode of right-sided weakness, headache and slurred speech, all consistent with possible left subcortical dysfunction considering the risk factor of hypertension, dyslipidemia and obesity. The patient's headache is related to her post spinal headache process. RECOMMENDATIONS: 1. IV hydration. 2. Caffeine. 3. Indomethacin can be given as a p.r.n. basis. 4. Aspirin should be given and the Plavix can be added for the next 6 months. 5. Unwanted medication should be discontinued including acetazolamide and SSRIs. 6. If the current MRI does not show any acute pathology, patient can be discharged and should have a followup visit as an outpatient. Meantime, the patient should be hydrated and NSAID can be given for her headache. Judson Jean MD
[2017-07-30] MEDS: Dextrose 5%/0.45% NS 1,000 ML IV SCH (05:54)
[2017-07-30 07:44] LABS: BASO % 0.3 % (0.0-2.0); EOS % 0.1 % (0.0-4.0); HEMOGLOBIN 13.3 g/dL (11.0-16.0); LYMPH # 2.5 K/uL (1.0-4.3); LYMPH % 28.3 % (20.0-40.0); MEAN CELL VOLUME 83.3 fL (81.0-99.0); MEAN CORPUSCULAR HGB CONC 34.8 g/dL (33.0-37.0); MEAN PLATELET VOLUME 8.4 fL (7.2-11.7); MONO # 0.6 K/uL (0.0-0.8); MONO % 6.3 % (0.0-10.0); NEUT # 5.8 K/uL (1.8-7.0); NRBC % 0.1 % (0.0-2.0); RBC 4.58 Mil/uL (3.80-5.20); RED CELL DISTRIBUTION WIDTH 12.7 % (11.5-14.5)
[2017-07-30 08:26] LABS: ALB/GLOB RATIO 1.2 (1.0-2.1); ALBUMIN 3.9 g/dL (3.5-5.0); ALT/SGPT 38 U/L (9-52); AST/SGOT 30 U/L (14-36); BLOOD UREA NITROGEN 14 mg/dL (7-17); CALCIUM 8.3 mg/dl (8.6-10.4); GFR AFRICAN-AMERICAN > 60; GFR NON-AFRICAN AMERICAN > 60
[2017-07-30] MEDS: acetaZOLAMIDE 500 mg SR Cap PO SCH (09:56)
[2017-07-30] MEDS ORDERED: Potassium Chloride 20 mEq ER Tab PO ONE (10:00)
--- NOTE | 2017-07-30 13:41 | CP.PCM.DIS ---
<DillonAlona - Last Filed: 07/30/17 16:38> Provider - Provider Date of Admission: 07/29/17 00:43 Attending physician: Gideon Turner MD Consults: Dr. Jean - neurology Dr. Newton - psychiatry Time Spent in preparation of Discharge (in minutes): 35 Diagnosis - Discharge Diagnosis (1) Arnold-Chiari malformation, type I Status: Acute (2) Conversion disorder Status: Chronic Priority: High (3) HLD (hyperlipidemia) Status: Chronic Priority: Medium (4) HTN (hypertension) Status: Chronic Priority: Medium Hospital Course - Lab Results Lab Results: Most Recent Lab Values WBC 9.0 K/uL (4.8-10.8) D 07/30/17 07:26 RBC 4.58 Mil/uL (3.80-5.20) 07/30/17 07:26 Hgb 13.3 g/dL (11.0-16.0) 07/30/17 07:26 Hct 38.1 % (34.0-47.0) 07/30/17 07:26 MCV 83.3 fL (81.0-99.0) 07/30/17 07:26 MCH 29.0 pg (27.0-31.0) 07/30/17 07:26 MCHC 34.8 g/dL (33.0-37.0) 07/30/17 07:26 RDW 12.7 % (11.5-14.5) 07/30/17 07:26 Plt Count 347 K/uL (130-400) 07/30/17 07:26 MPV 8.4 fL (7.2-11.7) 07/30/17 07:26 Neut % (Auto) 65.0 % (50.0-75.0) 07/30/17 07:26 Lymph % (Auto) 28.3 % (20.0-40.0) 07/30/17 07:26 Summers % (Auto) 6.3 % (0.0-10.0) 07/30/17 07:26 Eos % (Auto) 0.1 % (0.0-4.0) 07/30/17 07:26 Baso % (Auto) 0.3 % (0.0-2.0) 07/30/17 07:26 Neut # 5.8 K/uL (1.8-7.0) 07/30/17 07:26 Lymph # 2.5 K/uL (1.0-4.3) 07/30/17 07:26 Summers # 0.6 K/uL (0.0-0.8) 07/30/17 07:26 Eos # 0.0 K/uL (0.0-0.7) 07/30/17 07:26 Baso # 0.0 K/uL (0.0-0.2) 07/30/17 07:26 PT 11.2 SECONDS (9.7-12.2) 07/28/17 23:39 INR 1.0 07/28/17 23:39 APTT 31 SECONDS (21-34) 07/28/17 23:39 Sodium 133 mmol/L (132-148) 07/30/17 07:26 Potassium 3.4 mmol/L (3.6-5.2) L 07/30/17 07:26 Chloride 104 mmol/L (98-107) 07/30/17 07:26 Carbon Dioxide 21 mmol/L (22-30) L 07/30/17 07:26 Anion Gap 12 (10-20) 07/30/17 07:26 BUN 14 mg/dL (7-17) 07/30/17 07:26 Creatinine 0.8 mg/dL (0.7-1.2) 07/30/17 07:26 Est GFR ( Amer) > 60 07/30/17 07:26 Est GFR (Non-Af Amer) > 60 07/30/17 07:26 POC Glucose (mg/dL) 76 mg/dL (65-110) 07/30/17 12:00 Random Glucose 106 mg/dL (65-105) H 07/30/17 07:26 Hemoglobin A1c 5.9 % (4.2-6.5) 07/28/17 23:39 Calcium 8.3 mg/dl (8.6-10.4) L 07/30/17 07:26 Phosphorus 3.3 mg/dL (2.5-4.5) 07/29/17 11:49 Magnesium 2.8 mg/dL (1.6-2.3) H 07/29/17 11:49 Total Bilirubin 0.4 mg/dL (0.2-1.3) 07/30/17 07:26 AST 30 U/L (14-36) 07/30/17 07:26 ALT 38 U/L (9-52) 07/30/17 07:26 Alkaline Phosphatase 60 U/L (38-126) 07/30/17 07:26 Troponin I < 0.0120 ng/mL (0.00-0.120) 07/28/17 23:39 Total Protein 7.1 g/dL (6.3-8.3) 07/30/17 07:26 Albumin 3.9 g/dL (3.5-5.0) 07/30/17 07:26 Globulin 3.2 gm/dL (2.2-3.9) 07/30/17 07:26 Albumin/Globulin Ratio 1.2 (1.0-2.1) 07/30/17 07:26 Triglycerides 210 mg/dL (0-149) H 07/28/17 23:39 Cholesterol 154 mg/dL (0-199) 07/28/17 23:39 LDL Cholesterol Direct 76 mg/dL (0-129) 07/28/17 23:39 HDL Cholesterol 52 mg/dL (30-70) 07/28/17 23:39 Blood Type A NEGATIVE 07/28/17 23:30 Antibody Screen Negative 07/28/17 23:30 - Hospital Course Hospital Course: 56 year old female (PMHx Arnold Chiari Malformation, Increased Intracranial Pressure, HTN, HLD, Questionable TIA) who was admitted on 07/28/17 for evaluatoin of confusion, inability to open right eye, muscle stiffness, and aphasia all of which had resolved by the time that she reached the [facility] Emergency Room. She had similar episodes 4 to 5 years ago after the of her son and then again on 07/05/17 and 07/20/17. She is currently asymptomatic and her symptoms have not returned. CT Head did not show any acute abnormailities. MRI Brain showed Arnold Chiari Malformation 1. She was evaluated by Psychiatry and was diagnosed with Anxiety/Depression (she was seen by an unspecified Psychiatrist in the past as an outpatient but had stated that she stopped taking the unspecified medication that was prescribed to her). During this admission she was evaluated by Neurologist Dr. Jean who has cleared her for discharge. She has an appointment with her outpatient Neurologist Dr. Youssef for 08/08/17. Assessments: 1). Arnold Chiari Malformation: will need outpatient MRI Cervical and Thoracic Spine to make sure there is NO syrinx although NO hydrocephalus noted on CT Head. F/U Neurologist Dr. Youssef 08/08/17. 2). Increased Intracranial Pressure: Acetozalamide 3). HTN: Cozaar 4). HLD: Crestor 5). Questionable Hx of TIA: ASA, Crestor 6). Conversion Disorder? 7). Anxiety/Depression: Zoloft, Trazadone, Hydroxazine Patient will benefit from Home PT due to the slow gait. I spoke with Resident Caregiver Nuris [phone] and she will set this up with [facility] or another agency depending upon insurance approval and she will reach out to patient's son Alex [phone]. The following instructions were explained to the patient's son Alex via phone [phone] and a copy will need to be provided to patient upon discharge: 1). Please follow up as scheduled with your Neurologist Dr. Youssef on 08/08/17. Dr Youssef will have access to your radiology studies that you had performed at the time of this admission. 2). Through Dr. Youssef's office you should discuss the performance of an MRI of your Cervical and Thoracic Spine to make sure that there is NO evidence of cyst in the spinal canal. 3). Please make sure to follow up with your Primary Care Physician Dr. James in the next 7 to 10 days. Please bring this document with you at the time of your exam. 4). Please have the following prescriptions filled at your pharmacy and take as directed: Acetazolamide 500 mg, 1 tablet by mouth 2x/day (breakfast and dinner), Disp #60 , NO refills Aspirin 81 mg, 1 tablet by mouth 1x/day (breakfast), Disp #30, NO refills Losartan 100 mg, 1 tablet by mouth 1x/day (lunch), Disp #30, NO refills Rosuvastatin 10 mg, 1 tablet by mouth 1x/day (dinner), Disp #30, NO refills Zoloft 50 mg, 1 tablet by mouth 1x/day (breakfast), Disp #30, NO refills (DO NOT DISCONTINUE THIS DRUG without first speaking with your primary care Physician Dr. James) 5). You have been referred for Home Physical Therapy. Someone from the Physical Therapy Agency will be contacting you during the week of 08/02/17. If you do not hear from anyone by 08/05/17 please call [phone] and ask to speak with the social insurance administrator. 6). Failure to follow the above instructions will have serious consequences to your health. 7). Please take care, be good to yourself and your family/friends. 8). You have a beautiful smile and laugh and you should continue to do both as often as possible. Discharge Exam - Head Exam Head Exam: ATRAUMATIC, NORMAL INSPECTION - Eye Exam Eye Exam: EOMI Additional comments: No nystagmus - ENT Exam ENT Exam: Mucous Membranes Moist - Respiratory Exam Respiratory Exam: Clear to PA & Lateral, NORMAL BREATHING PATTERN. absent: Respiratory Distress - Cardiovascular Exam Cardiovascular Exam: REGULAR RHYTHM, +S1, +S2 - GI/Abdominal Exam GI & Abdominal Exam: Normal Bowel Sounds, Soft. absent: Distended, Firm, Guarding, Tenderness - Extremities Exam Extremities exam: normal inspection - Back Exam Back exam: NORMAL INSPECTION - Neurological Exam Neurological exam: Alert, CN II-XII Intact, Oriented x3 Additional comments: CN II through XII are grossly intact, 5/5 muscle stregnth with flexion/ extension B/L UE and LE against resistance, 2/4 DTR, slow normal gait with NO unsteadiness noted at the time of my exam, normal finger to nose, normal alternating hand motion. - Psychiatric Exam Psychiatric exam: Normal Affect, Normal Mood - Skin Skin Exam: Dry, Intact, Normal Color, Warm Discharge Plan - Discharge Medications Prescriptions: acetaZOLAMIDE [Diamox Sequels 500 mg SR Cap] 500 mg PO BID #60 cer Aspirin [Aspirin Chewable] 81 mg PO DAILY #30 chew Losartan [Cozaar] 100 mg PO DAILY #30 tab Rosuvastatin Calcium [Crestor] 10 mg PO HS #30 tab Sertraline [Zoloft] 50 mg PO DAILY #30 tab - Follow Up Plan Condition: STABLE Disposition: HOME/ ROUTINE Instructions: Transient Ischemic Attack (DC), Chiari Malformation (DC) Referrals: Rylan Newton MD [Staff Provider] - Nolberto Youssef MD [Staff Provider] - Judson Jean MD [Staff Provider] - <Gideon Turner - Last Filed: 07/30/17 18:40> Provider - Provider Date of Admission: 07/29/17 00:43 Attending physician: Gideon Turner MD Hospital Course - Lab Results Lab Results: Most Recent Lab Values WBC 9.0 K/uL (4.8-10.8) D 07/30/17 07:26 RBC 4.58 Mil/uL (3.80-5.20) 07/30/17 07:26 Hgb 13.3 g/dL (11.0-16.0) 07/30/17 07:26 Hct 38.1 % (34.0-47.0) 07/30/17 07:26 MCV 83.3 fL (81.0-99.0) 07/30/17 07:26 MCH 29.0 pg (27.0-31.0) 07/30/17 07:26 MCHC 34.8 g/dL (33.0-37.0) 07/30/17 07:26 RDW 12.7 % (11.5-14.5) 07/30/17 07:26 Plt Count 347 K/uL (130-400) 07/30/17 07:26 MPV 8.4 fL (7.2-11.7) 07/30/17 07:26 Neut % (Auto) 65.0 % (50.0-75.0) 07/30/17 07:26 Lymph % (Auto) 28.3 % (20.0-40.0) 07/30/17 07:26 Summers % (Auto) 6.3 % (0.0-10.0) 07/30/17 07:26 Eos % (Auto) 0.1 % (0.0-4.0) 07/30/17 07:26 Baso % (Auto) 0.3 % (0.0-2.0) 07/30/17 07:26 Neut # 5.8 K/uL (1.8-7.0) 07/30/17 07:26 Lymph # 2.5 K/uL (1.0-4.3) 07/30/17 07:26 Summers # 0.6 K/uL (0.0-0.8) 07/30/17 07:26 Eos # 0.0 K/uL (0.0-0.7) 07/30/17 07:26 Baso # 0.0 K/uL (0.0-0.2) 07/30/17 07:26 PT 11.2 SECONDS (9.7-12.2) 07/28/17 23:39 INR 1.0 07/28/17 23:39 APTT 31 SECONDS (21-34) 07/28/17 23:39 Sodium 133 mmol/L (132-148) 07/30/17 07:26 Potassium 3.4 mmol/L (3.6-5.2) L 07/30/17 07:26 Chloride 104 mmol/L (98-107) 07/30/17 07:26 Carbon Dioxide 21 mmol/L (22-30) L 07/30/17 07:26 Anion Gap 12 (10-20) 07/30/17 07:26 BUN 14 mg/dL (7-17) 07/30/17 07:26 Creatinine 0.8 mg/dL (0.7-1.2) 07/30/17 07:26 Est GFR ( Amer) > 60 07/30/17 07:26 Est GFR (Non-Af Amer) > 60 07/30/17 07:26 POC Glucose (mg/dL) 76 mg/dL (65-110) 07/30/17 12:00 Random Glucose 106 mg/dL (65-105) H 07/30/17 07:26 Hemoglobin A1c 5.9 % (4.2-6.5) 07/28/17 23:39 Calcium 8.3 mg/dl (8.6-10.4) L 07/30/17 07:26 Phosphorus 3.3 mg/dL (2.5-4.5) 07/29/17 11:49 Magnesium 2.8 mg/dL (1.6-2.3) H 07/29/17 11:49 Total Bilirubin 0.4 mg/dL (0.2-1.3) 07/30/17 07:26 AST 30 U/L (14-36) 07/30/17 07:26 ALT 38 U/L (9-52) 07/30/17 07:26 Alkaline Phosphatase 60 U/L (38-126) 07/30/17 07:26 Troponin I < 0.0120 ng/mL (0.00-0.120) 07/28/17 23:39 Total Protein 7.1 g/dL (6.3-8.3) 07/30/17 07:26 Albumin 3.9 g/dL (3.5-5.0) 07/30/17 07:26 Globulin 3.2 gm/dL (2.2-3.9) 07/30/17 07:26 Albumin/Globulin Ratio 1.2 (1.0-2.1) 07/30/17 07:26 Triglycerides 210 mg/dL (0-149) H 07/28/17 23:39 Cholesterol 154 mg/dL (0-199) 07/28/17 23:39 LDL Cholesterol Direct 76 mg/dL (0-129) 07/28/17 23:39 HDL Cholesterol 52 mg/dL (30-70) 07/28/17 23:39 Blood Type A NEGATIVE 07/28/17 23:30 Antibody Screen Negative 07/28/17 23:30 Attending/Attestation - Attestation I have personally seen and examined this patient.: Yes I have fully participated in the care of the patient.: Yes I have reviewed all pertinent clinical information, including history, physical exam and plan: Yes Notes (Text): 07/30/17 18:39 Please also see my progress note 07/30/17. Gideon Turner D.O.
--- NOTE | 2017-07-30 15:17 | CP.PCM.PN ---
Subjective - Date & Time of Evaluation Date of Evaluation: 07/30/17 Time of Evaluation: 14:40 - Subjective Subjective: Hospitalist Progress Note Patient was seen and examined at 2:40 PM 07/30/17 665 A 56 year old female (PMHx Arnold Chiari Malformation, Increased Intracranial Pressure, HTN, HLD, Questionable TIA) who was admitted on 07/28/17 for evaluatoin of confusion, inability to open right eye, muscle stiffness, and aphasia all of which had resolved by the time that she reached the [facility] Emergency Room. She had similar episodes 4 to 5 years ago after the of her son and then again on 07/05/17 and 07/20/17. She is currently asymptomatic and her symptoms have not returned. CT Head did not show any acute abnormailities. MRI Brain showed Arnold Chiari Malformation 1. She was evaluated by Psychiatry and was diagnosed with Anxiety/Depression (she was seen by an unspecified Psychiatrist in the past as an outpatient but had stated that she stopped taking the unspecified medication that was prescribed to her). During this admission she was evaluated by Neurologist Dr. Jean who has cleared her for discharge. She has an appointment with her outpatient Neurologist Dr. Youssef for 08/08/17. Currently upon FULL ROS NO Chest Pain, NO palpitations NO SOB/Coughing NO dysphagia/odynophagia NO abdominal pain NO n/v/d/c NO burning/pain with urination NO new changes in vision/eye pain NO new changes in hearing/ear pain NO edema NO paresthesias Exam: General: AAOx3, NAD HEENT: NCA, EOMI, PERRLA, NO Nystagmus, NO pharyngeal erythema/exudate, NO thyromegaly, NO cervical/supraclavicular/submandibular lymphadenopathy, Mucous membranes are moist Cardio: NS1 and NS2, NO M/R/G Resp: CTA B/L, NO R/R/W GI: BSx4, Soft, NT, Central Obesity and therefore liver and spleen could not be palpated adequately Ext: NO edema, Pulses are strong and equal, Capillary Refill is 2 seconds Neuro: CN II through XII are grossly intact, 5/5 muscle stregnth with flexion/ extension B/L UE and LE against resistance, 2/4 DTR, slow normal gait with NO unsteadiness noted at the time of my exam, normal finger to nose, normal alternating hand motion. Assessments: 1). Arnold Chiari Malformation: will need outpatient MRI Cervical and Thoracic Spine to make sure there is NO syrinx although NO hydrocephalus noted on CT Head. F/U Neurologist Dr. Youssef 08/08/17. 2). Increased Intracranial Pressure: Acetozalamide 3). HTN: Cozaar 4). HLD: Crestor 5). Questionable Hx of TIA: ASA, Crestor 6). Conversion Disorder? 7). Anxiety/Depression: Zoloft, Trazadone, Hydroxazine Patient will benefit from Home PT due to the slow gait. I spoke with Clinical Statistics Manager Nuris [phone] and she will set this up with [facility] or another agency depending upon insurance approval and she will reach out to patient's son Alex [phone]. The following instructions were explained to the patient's son Alex via phone [phone] and a copy will need to be provided to patient upon discharge: 1). Please follow up as scheduled with your Neurologist Dr. Youssef on 08/08/17. Dr Youssef will have access to your radiology studies that you had performed at the time of this admission. 2). Through Dr. Youssef's office you should discuss the performance of an MRI of your Cervical and Thoracic Spine to make sure that there is NO evidence of cyst in the spinal canal. 3). Please make sure to follow up with your Primary Care Physician Dr. James in the next 7 to 10 days. Please bring this document with you at the time of your exam. 4). Please have the following prescriptions filled at your pharmacy and take as directed: Acetazolamide 500 mg, 1 tablet by mouth 2x/day (breakfast and dinner), Disp #60 , NO refills Aspirin 81 mg, 1 tablet by mouth 1x/day (breakfast), Disp #30, NO refills Losartan 100 mg, 1 tablet by mouth 1x/day (lunch), Disp #30, NO refills Rosuvastatin 10 mg, 1 tablet by mouth 1x/day (dinner), Disp #30, NO refills Zoloft 50 mg, 1 tablet by mouth 1x/day (breakfast), Disp #30, NO refills (DO NOT DISCONTINUE THIS DRUG without first speaking with your primary care Physician Dr. James) 5). You have been referred for Home Physical Therapy. Someone from the Physical Therapy Agency will be contacting you during the week of 08/02/17. If you do not hear from anyone by 08/05/17 please call [phone] and ask to speak with the social worker assistant. 6). Failure to follow the above instructions will have serious consequences to your health. 7). Please take care, be good to yourself and your family/friends. 8). You have a beautiful smile and laugh and you should continue to do both as often as possible. Gideon Turner D.O. Objective - Vital Signs/Intake and Output Vital Signs (last 24 hours): Temp Pulse Resp BP Pulse Ox 98.7 F 81 20 108/75 99 07/30/17 08:56 07/30/17 08:56 07/30/17 08:56 07/30/17 08:56 07/30/17 08:56 Intake and Output: 07/30/17 07/30/17 06:59 18:59 Intake Total 640 Balance 640 - Medications Medications: Current Medications Acetazolamide (Diamox Sequels 500 Mg Sr Cap) 500 mg PO BID [facility] Last Admin: 07/30/17 09:56 Dose: 500 mg Aspirin (Aspirin Chewable) 81 mg PO DAILY [facility] Last Admin: 07/30/17 09:24 Dose: 81 mg Docusate Sodium (Colace) 100 mg PO BID [facility] Last Admin: 07/30/17 09:24 Dose: 100 mg Famotidine (Pepcid) 20 mg PO BID [facility] Last Admin: 07/30/17 09:28 Dose: 20 mg Heparin Sodium (Porcine) (Heparin) 5,000 units SC Q12 [facility] Last Admin: 07/30/17 09:24 Dose: 5,000 units Hydroxyzine HCl (Atarax) 25 mg PO BID [facility] Last Admin: 07/30/17 09:57 Dose: 25 mg Dextrose/Sodium Chloride (Dextrose 5%/0.45% Ns 1000 Ml) 1,000 mls @ 80 mls/hr IV .[id number] [facility] Last Admin: 07/30/17 05:54 Dose: 80 mls/hr Losartan Potassium (Cozaar) 100 mg PO DAILY [facility] Last Admin: 07/30/17 09:24 Dose: 100 mg Rosuvastatin Calcium (Crestor) 10 mg PO HS [facility] Last Admin: 07/29/17 21:39 Dose: 10 mg Sertraline HCl (Zoloft) 50 mg PO DAILY [facility] Last Admin: 07/30/17 09:28 Dose: 50 mg Trazodone HCl (Desyrel) 50 mg PO HS [facility] Last Admin: 07/29/17 21:39 Dose: 50 mg - Labs Labs: 07/30/17 07:26 07/30/17 07:26 PT 11.2 SECONDS (9.7-12.2) 07/28/17 23:39 INR 1.0 07/28/17 23:39 APTT 31 SECONDS (21-34) 07/28/17 23:39
[2017-07-30 16:06] VITALS: BP 104/68; PULSE 72; TEMP 98.2; O2SAT 96
--- NOTE | 2017-08-02 19:55 | CARD ---
APPROVED REPORT EKG Measurement Heart [id number] <Conclusion> Normal sinus rhythm Nonspecific ST and T wave abnormality Abnormal ECG
== END 2017-07-30 17:10 | disposition home or self-care (01) | DRG 891 ==
LOC: C.ER 22:34 → C.6T 07-29 00:43
PROVIDERS: ADMIT Internal Medicine; ATTEND Family Medicine
DX: G93.2 Benign intracranial hypertension (principal); R47.01 Aphasia; Q07.00 Arnold-Chiari syndrome without spina bifida or hydrocephalus; E78.5 Hyperlipidemia, unspecified; I10 Essential (primary) hypertension; F44.9 Dissociative and conversion disorder, unspecified; R55 Syncope and collapse; F41.9 Anxiety disorder, unspecified; F32.9 Major depressive disorder, single episode, unspecified; G47.00 Insomnia, unspecified; G97.1 Other reaction to spinal and lumbar puncture; Y84.4 Aspiration of fluid as the cause of abnormal reaction of the patient, or of later complication, without mention of misadventure at the time of the procedure; E66.9 Obesity, unspecified; Z86.73 Personal history of transient ischemic attack (TIA), and cerebral infarction without residual deficits; Z68.32 Body mass index [BMI] 32.0-32.9, adult; Z90.49 Acquired absence of other specified parts of digestive tract

== ENCOUNTER 2017-10-14 11:16 | Emergency (ER) | payer MEDICAID ==
[2017-10-14 11:21] VITALS: BMI 32.9
[2017-10-14 11:25] VITALS: RESP 18
[2017-10-14 12:03] LABS: HCG,QUALITATIVE URINE NEGATIVE (NEGATIVE); SQUAMOUS EPITHIAL 1 /hpf (0-5); URINE BACTERIA OCC (<OCC); URINE BILIRUBIN NEGATIVE (NEGATIVE); URINE BLOOD 2+ (NEGATIVE); URINE CLARITY Clear (Clear); URINE COLOR Colorless (YELLOW); URINE GLUCOSE (UA) NORMAL (Normal); URINE LEUKOCYTE ESTERASE NEG Leu/uL (Negative); URINE PROTEIN NEGATIVE (NEGATIVE); URINE UROBILINOGEN NORMAL mg/dL (0.2-1.0)
[2017-10-14] MEDS ORDERED: Morphine 4 MG/ML VIAL IV ONE (12:04)
[2017-10-14] MEDS ORDERED: Aluminum Hydroxide/Magnesium Hydroxide Susp (30 mL) PO STA (12:04)
--- NOTE | 2017-10-14 12:05 | C.PDOC ---
History Of Present Illness 57 year old female with PMHx of HTN and TIA presents to the ED c/o constant right sided abdominal pain associated with nausea that started 2 days ago. Patient states her pain worsens with movement and radiates to her back. Patient had an appendectomy, cholecystectomy in the past. Patient denies fever, chills, nausea, vomiting, diarrhea, constipation. Time Seen by Provider: 10/14/17 12:00 Chief Complaint (Nursing): Abdominal Pain History Per: Patient History/Exam Limitations: no limitations Onset/Duration Of Symptoms: Days Current Symptoms Are (Timing): Still Present Location Of Pain/Discomfort: RUQ, RLQ Radiation Of Pain To:: Back Quality Of Discomfort: "Pain" Associated Symptoms: Nausea, Loss Of Appetite Exacerbating Factors: Movement Alleviating Factors: None Recent travel outside of the [place]: No Additional History Per: Patient Abnormal Vaginal Bleeding: No Past Medical History Reviewed: Historical Data, Nursing Documentation, Vital Signs Vital Signs: Last Vital Signs Temp 97.5 F L 10/14/17 11:21 Pulse 77 10/14/17 11:21 Resp 18 10/14/17 11:21 BP 110/76 10/14/17 11:21 Pulse Ox 98 10/14/17 15:32 - Medical History PMH: Anxiety, HTN, Hypercholesterolemia, TIA (TIA x 3 since 07/05/17) Denies: Chronic Kidney Disease Surgical History: Appendectomy, Cholecystectomy Family History: States: Unknown Family Hx - Social History Hx Alcohol Use: No Hx Substance Use: No - Immunization History Hx Tetanus Toxoid Vaccination: No Hx Influenza Vaccination: No Hx Pneumococcal Vaccination: No Review Of Systems Constitutional: Negative for: Fever, Chills Cardiovascular: Negative for: Chest Pain Respiratory: Negative for: Cough, Shortness of Breath Gastrointestinal: Positive for: Nausea, Abdominal Pain. Negative for: Vomiting , Diarrhea Genitourinary: Negative for: Dysuria Musculoskeletal: Positive for: Back Pain Skin: Negative for: Rash Neurological: Negative for: Weakness, Numbness Physical Exam - Physical Exam Appears: Non-toxic, No Acute Distress Skin: Normal Color, Warm, Dry Head: Atraumatic, Normacephalic Eye(s): bilateral: Normal Inspection Nose: No Discharge Oral Mucosa: Moist Neck: Normal ROM, Supple Chest: Symmetrical Cardiovascular: Rhythm Regular, No Murmur Respiratory: Normal Breath Sounds, No Rales, No Rhonchi, No Wheezing Gastrointestinal/Abdominal: Soft, Tenderness (RUQ), No Guarding, No Rebound Extremity: Normal ROM, No Tenderness, No Swelling Pulses: Left Dorsalis Pedis: Normal, Right Dorsalis Pedis: Normal Neurological/Psych: Oriented x3 ED Course And Treatment - Laboratory Results Result Diagrams: 10/14/17 12:13 10/14/17 12:13 O2 Sat by Pulse Oximetry: 98 (On RA) Pulse Ox Interpretation: Normal - CT Scan/US CT abd/pelvis Other Rad Studies (CT/US): Read By Radiologist, Radiology Report Reviewed CT/US Interpretation: PROCEDURE: CT Abdomen and Pelvis without Oral or IV contrast. HISTORY: flank pain,hematuria. COMPARISON: None available. TECHNIQUE: Contiguous axial images of the abdomen and pelvis. No oral or IV contrast administered. Coronal and Sagittal reformats generated and reviewed. Radiation dose: Total exam DLP = 745.20 mGy-cm. This CT exam was performed using one or more of the following dose reduction techniques: Automated exposure control, adjustment of the mA and/or kV according to patient size, and/ or use of iterative reconstruction technique. FINDINGS: There is limited evaluation of the solid organs without the administration of IV contrast. LOWER THORAX: Partially imaged dextro cardia. No visible consolidation, pleural effusion, or pneumothorax. Tiny calcification within the right middle lobe, likely calcified granuloma. LIVER: The liver is noted in the left upper quadrant. GALLBLADDER AND BILE DUCTS: The gallbladder is not visualized. PANCREAS: Unremarkable unenhanced appearance. SPLEEN: The spleen is noted in the right upper quadrant. ADRENALS: Unremarkable unenhanced appearance. KIDNEYS AND URETERS: No hydronephrosis or obstructing renal calculus. BLADDER : The urinary bladder appears unremarkable. REPRODUCTIVE: Uterus is absent consistent with hysterectomy. APPENDIX: The appendix is identified within the left lower quadrant. Appendix appears within normal limits of caliber. No secondary signs of acute appendicitis. BOWEL: Stomach is in the right upper quadrant. The stomach is nondistended. Lack of oral contrast limits evaluation for bowel pathology. Evidence of malrotation of the colon. Rectosigmoid colon in the right abdomen and cecum in the left abdomen. Anastomotic suture material noted at the rectosigmoid colon. Diverticulosis without CT evidence of acute diverticulitis. PERITONEUM: No significant free fluid. No definite free air. LYMPH NODES: No bulky lymphadenopathy identified. VASCULATURE: No aortic aneurysm. BONES: No acute osseous abnormality is detected. OTHER FINDINGS: Mild nonspecific right pericolonic inflammatory stranding without adjacent abnormality appreciated. IMPRESSION: Evidence of dextrocardia situs inversus totalis. Mild nonspecific right pericolonic inflammatory stranding without adjacent abnormality appreciated. Correlate clinically for infectious/ inflammatory etiologies. Diverticulosis without CT evidence of acute diverticulitis. The gallbladder is not visualized. Medical Decision Making Medical Decision Making: Impression: abdominal pain Plan: * Labs * Maalox 30 ml PO * Moprhine 4 mg IVP * Pepcid 20 mg IVP * UA Disposition - Disposition Referrals: [facility] [Outside] Disposition: HOME/ ROUTINE Disposition Time: 15:27 Condition: GOOD Prescriptions: Ciprofloxacin HCl [Cipro] 500 mg PO BID #20 tablet Metronidazole [Flagyl] 500 mg PO TID #30 tablet oxyCODONE/Acetaminophen 1/2TAB [Percocet 5-325 mg HALF TAB] 0.5 ea PO QID #10 tab Instructions: Inflammatory Bowel Disease Forms: [facility] [facility] (Slovenian) - Clinical Impression Clinical Impression: Colitis - Scribe Statement The provider has reviewed the documentation as recorded by the Scribe Shane Torres All medical record entries made by the Scribe were at my direction and personally dictated by me. I have reviewed the chart and agree that the record accurately reflects my personal performance of the history, physical exam, medical decision making, and the department course for this patient. I have also personally directed, reviewed, and agree with the discharge instructions and disposition.
[2017-10-14] MEDS ORDERED: Morphine 4 MG/ML VIAL ONE (12:26)
[2017-10-14 12:28] LABS: BASO # 0.1 K/uL (0.0-0.2); BASO % 0.8 % (0.0-2.0); EOS # 0.1 K/uL (0.0-0.7); HEMOGLOBIN 13.1 g/dL (11.0-16.0); LYMPH # 2.6 K/uL (1.0-4.3); LYMPH % 30.8 % (20.0-40.0); MEAN CORPUSCULAR HGB CONC 33.4 g/dL (33.0-37.0); MEAN PLATELET VOLUME 8.1 fL (7.2-11.7); MONO # 0.7 K/uL (0.0-0.8); MONO % 8.9 % (0.0-10.0); NEUT # 4.9 K/uL (1.8-7.0); NEUT % 58.5 % (50.0-75.0); NRBC % 0.1 % (0.0-2.0); RBC 4.67 Mil/uL (3.80-5.20); WHITE BLOOD COUNT 8.4 K/uL (4.8-10.8)
[2017-10-14 12:33] LABS: ALB/GLOB RATIO 1.1 (1.0-2.1); ALBUMIN 4.2 g/dL (3.5-5.0); ALT/SGPT 34 U/L (9-52); AST/SGOT 30 U/L (14-36); BLOOD UREA NITROGEN 10 mg/dL (7-17); CALCIUM 8.8 mg/dl (8.6-10.4); GFR AFRICAN-AMERICAN > 60; GFR NON-AFRICAN AMERICAN > 60; LIPASE 134 U/L (23-300)
--- NOTE | 2017-10-14 15:20 | CT ---
PROCEDURE: CT Abdomen and Pelvis without Oral or IV contrast. HISTORY: flank pain,hematuria COMPARISON: None available. TECHNIQUE: Contiguous axial images of the abdomen and pelvis. No oral or IV contrast administered. Coronal and Sagittal reformats generated and reviewed. Radiation dose: Total exam DLP = 745.20 mGy-cm. This CT exam was performed using one or more of the following dose reduction techniques: Automated exposure control, adjustment of the mA and/or kV according to patient size, and/or use of iterative reconstruction technique. FINDINGS: There is limited evaluation of the solid organs without the administration of IV contrast. LOWER THORAX: Partially imaged dextro cardia. No visible consolidation, pleural effusion, or pneumothorax. Tiny calcification within the right middle lobe, likely calcified granuloma. LIVER: The liver is noted in the left upper quadrant. GALLBLADDER AND BILE DUCTS: The gallbladder is not visualized. PANCREAS: Unremarkable unenhanced appearance. SPLEEN: The spleen is noted in the right upper quadrant. ADRENALS: Unremarkable unenhanced appearance. KIDNEYS AND URETERS: No hydronephrosis or obstructing renal calculus. BLADDER: The urinary bladder appears unremarkable. REPRODUCTIVE: Uterus is absent consistent with hysterectomy. APPENDIX: The appendix is identified within the left lower quadrant. Appendix appears within normal limits of caliber. No secondary signs of acute appendicitis. BOWEL: Stomach is in the right upper quadrant. The stomach is nondistended. Lack of oral contrast limits evaluation for bowel pathology. Evidence of malrotation of the colon. Rectosigmoid colon in the right abdomen and cecum in the left abdomen. Anastomotic suture material noted at the rectosigmoid colon. Diverticulosis without CT evidence of acute diverticulitis. PERITONEUM: No significant free fluid. No definite free air. LYMPH NODES: No bulky lymphadenopathy identified. VASCULATURE: No aortic aneurysm. BONES: No acute osseous abnormality is detected. OTHER FINDINGS: Mild nonspecific right pericolonic inflammatory stranding without adjacent abnormality appreciated. IMPRESSION: Evidence of dextrocardia situs inversus totalis. Mild nonspecific right pericolonic inflammatory stranding without adjacent abnormality appreciated. Correlate clinically for infectious/inflammatory etiologies. Diverticulosis without CT evidence of acute diverticulitis. The gallbladder is not visualized.
[2017-10-14 15:40] VITALS: BP 112/74; PULSE 74; TEMP 98
[2017-10-14 15:48] VITALS: O2SAT 98
== END 2017-10-14 15:50 | disposition home or self-care (01) ==
LOC: C.ER 11:16
DX: K52.9 Noninfective gastroenteritis and colitis, unspecified (principal); I10 Essential (primary) hypertension; E78.00 Pure hypercholesterolemia, unspecified
CPT/HCPCS: 74176; 80053; 81001; 83690; 84703; 85025; 96374; 96375; 99285; J1885; J2270